=== PATIENT | male | born 1975 | race African-American/Black ===

== ENCOUNTER 2016-10-20 17:53 | Emergency (ER) | payer MEDICAID, OTHER ==
[2016-10-20] MEDS ORDERED: LIDOCAINE 1% INJ-PF (10 MG/ML) 30 ML SDV INJ ONE (19:04)
[2016-10-20] MEDS ORDERED: DIPH/PERTUSS(ACELL)/TETANUS VAC/PF 0.5 ML SYR (>=10YO) IM ONE (19:04)
[2016-10-20] MEDS ORDERED: CEPHALEXIN 500 MG CAPSULE PO ONE (19:05)
--- NOTE | 2016-10-20 19:05 | ER Document Report ---
ED Hand/Wrist Injury - General Chief Complaint: Laceration Stated Complaint: LEFT HAND INJURY Time Seen by Provider: 10/20/16 18:44 Mode of Arrival: Ambulatory Information source: Patient Notes: 41-year-old male presents to ED for laceration to the back of the left hand/ wrist this afternoon just prior to arrival. 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 He states his tetanus was at least 10 years ago. TRAVEL OUTSIDE OF THE [place] IN LAST 30 DAYS: No - HPI Injury to: Hand Onset: Just prior to arrival Where: Outdoors, Public place Timing: Still present Quality of pain: Sharp Severity: Moderate Pain Level: 2 Context: Laceration - Related Data Allergies/Adverse Reactions: No Known Allergies Allergy (Verified 10/20/16 18:30) Past Medical History - General Information source: Patient - Social History Smoking Status: Current Every Day Smoker Cigarette use (# per day): Yes - 1/2 ppd Chew tobacco use (# tins/day): No Smoking Education Provided: Yes - less than 2 min Frequency of alcohol use: Heavy - daily Drug Abuse: None Occupation: auto salvage Lives with: Family - cousin Family History: Arthritis, CVA, DM, Hyperlipidemia, Hypertension, Malignancy, Thyroid Disfunction. denies: CAD, COPD Patient has suicidal ideation: No Patient has homicidal ideation: No - Past Medical History Cardiac Medical History: Reports: Hx Hypercholesterolemia, Hx Hypertension Pulmonary Medical History: Reports: None EENT Medical History: Reports: None Neurological Medical History: Reports: Hx Migraine Endocrine Medical History: Reports: None Renal/ Medical History: Reports: None Malignancy Medical History: Reports None GI Medical History: Reports: None Musculoskeltal Medical History: Reports Hx Arthritis, Reports Hx Musculoskeletal Deformity - chronic back pain and joint pain, Reports Hx Musculoskeletal Trauma Skin Medical History: Reports None Psychiatric Medical History: Reports: Hx Bipolar Disorder, Hx Schizophrenia Traumatic Medical History: Reports: Hx Fractures - left hip, Hx Traumatic Brain Injury Past Surgical History: Reports: Other - Corneal transplant - Immunizations Hx Diphtheria, Pertussis, Tetanus Vaccination: Yes - October 20, 2016 Review of Systems - Review of Systems Constitutional: No symptoms reported EENT: No symptoms reported Cardiovascular: No symptoms reported Respiratory: No symptoms reported Gastrointestinal: No symptoms reported Genitourinary: No symptoms reported Male Genitourinary: No symptoms reported Musculoskeletal: No symptoms reported Skin: Other - Laceration left hand Hematologic/Lymphatic: No symptoms reported Neurological/Psychological: No symptoms reported Physical Exam - Vital signs Vitals: Temp Pulse Resp BP Pulse Ox 98.1 F 70 16 114/80 98 10/20/16 18:30 10/20/16 18:30 10/20/16 18:30 10/20/16 18:30 10/20/16 18:30 Interpretation: Normal - General General appearance: Appears well, Alert - HEENT Head: Normocephalic, Atraumatic Eyes: Normal Pupils: PERRL - Respiratory Respiratory status: No respiratory distress Chest status: Nontender Breath sounds: Normal Chest palpation: Normal - Cardiovascular Rhythm: Regular Heart sounds: Normal auscultation Murmur: No - Abdominal Inspection: Normal Distension: No distension Bowel sounds: Normal Tenderness: Nontender Organomegaly: No organomegaly - Back Back: Normal, Nontender - Extremities General upper extremity: Normal color, Normal ROM, Normal temperature General lower extremity: Normal inspection, Nontender, Normal color, Normal ROM , Normal temperature, Normal weight bearing. No: Wander's sign Hand: Tender, Laceration - Posterior hand/wrist, No evidence of human bite, No evidence of FB. No: Swelling, Tendon deficit - Neurological Neuro grossly intact: Yes Cognition: Normal Orientation: AAOx4 Shelley Coma Scale Eye Opening: Spontaneous Shelley Coma Scale Verbal: Oriented Herscher Coma Scale Motor: Obeys Commands Shelley Coma Scale Total: 15 Speech: Normal Motor strength normal: LUE, RUE, LLE, RLE Sensory: Normal - Psychological Associated symptoms: Normal affect, Normal mood - Skin Skin Temperature: Warm Skin Moisture: Dry Skin Color: Normal Skin irregularity: Laceration - Posterior hand/wrist Irregularity with: Tenderness Course - Re-evaluation Re-evalutation: 10/20/16 20:24 Patient was treated with Keflex and tetanus shot before sutures were completed. Discharged home with prescription for Keflex instructed to follow-up with his primary doctor in 3 days to reexamine the wound and in 8 days to have the sutures removed. - Vital Signs Vital signs: Temp Pulse Resp BP Pulse Ox 98.1 F 70 16 114/80 98 10/20/16 18:30 10/20/16 18:30 10/20/16 18:30 10/20/16 18:30 10/20/16 18:30 Procedures - Laceration/Wound Repair Left Hand/wrist Time completed: 20:23 Wound length (cm): 1.5 Wound's Depth, Shape: Linear Laceration pre-procedure: Sterile PPE donned, Sterile drapes applied, Other Anesthetic type: 1% Lidocaine Volume Anesthetic (mLs): 6 Wound explored: Clean, No foreign body removed Irrigated w/ Saline (mLs): 500 Wound Repaired With: Sutures Suture Size/Type: 3:0, Ethilon Number of Sutures: 3 Layer Closure?: No Post-procedure wound care: Sterile dressing applied Post-procedure NV exam normal: Yes Complications: Yes Discharge - Discharge Clinical Impression: left posterior wrist laceration Condition: Stable Disposition: HOME, SELF-CARE Additional Instructions: Hand Laceration A laceration on the hand can present special problems. It may be difficult to keep the wound dry. Motion of the fingers can disturb the healing edges. Your work may involve exposure to damaging chemicals or water. Keep the wound clean and dry. If you can't keep the cut dry, undisturbed, and free of chemical exposure, please discuss this with the doctor. If any water or chemical gets onto the dressing, remove it, blot the wound dry, then apply a fresh bandage. Dressings should be changed every day. If you feel the stitches pulling as you move the hand, a splint or other form of protection is needed. If any signs of infection occur (swelling, redness, increasing tenderness, red streaks, tender lumps in the armpit, or fever), see the doctor immediately. LACERATION CARE: Your laceration has been sutured to keep the skin edges aligned during healing. The time of suture removal depends on the nature and location of your cut. Please follow the care instructions the doctor has outlined for you and return for further care, according to the schedule you've been given. Keep the wound and dressing clean. Unless you were told otherwise, you may shower daily, blotting the wound dry with a clean, unused towel. At other times, If the dressing gets wet or blood soaked, remove it and blot the wound dry, then reapply a new dressing. Unless you were instructed otherwise, dressings should be changed at least daily. If any signs of infection occur (swelling, redness, drainage, increasing tenderness, red streaks, tender lumps in the armpit or groin above the laceration, or fever), see the doctor immediately. SOAP CLEANSING: Gently wash the wound daily using a mild soap (like Ivory, Phisoderm, Neutrogena). Use warm water, rubbing gently until all debris, ooze, and crusting have been washed from the wound. Allow to dry briefly (about 10 minutes) after cleaning. Repeat this cleansing at least three times a day for the first two days and then once or twice a day. ANTIBIOTIC OINTMENT PROTECTION: Your wounds are such that dressing them is not practical or optional. After cleansing, you should apply a thin coating of antibiotic ointment ( Bacitracin, not Neosporin) to the wounds at least three times daily. This lessens infection risk, and may decrease the amount of scarring. Use a q-tip or dull butter knife, not your finger, to apply this ointment. Any debris or ooze which builds up in the ointment should be gently rubbed off with a sterile gauze pad. Harder crusting may need to be gently scrubbed off with a clean wash cloth with soap and warm water, perhaps applying a warm, wet wash cloth to the wound for ten minutes first. Development of redness, severe itching, or blistering may mean allergy to the ointment. See the doctor. TETANUS IMMUNIZATION GIVEN: You have been given an immunization against tetanus. Please record this in your records. In general, a booster is needed only once every 10 years. The tetanus shot protects against tetanus or "lockjaw," which is a complication of certain wound infections (the tetanus shot cannot protect against the actual infection). The immunization site may become warm and red due to local reaction. If this occurs, apply warm compresses and take aspirin or ibuprofen to reduce inflammation and discomfort. Return for evaluation if the reaction becomes severe. PROPHYLACTIC ANTIBIOTIC: The antibiotics which have been prescribed are designed to decrease the risk of infection. Only certain types of wounds benefit from this -- the typical cut, scrape, or burn DOES NOT require antibiotics. Of course, infection can still occur despite the use of prophylactic antibiotics. Your wound will heal with less chance of an infectious complication if you take the medication as directed. The most important dose is the FIRST dose, so don't delay filling the prescription! FOLLOW-UP CARE: Please return in __2___ days for an infection check and dressing change. Your sutures should be removed in __8___ days. To facilitate a timely removal of your sutures, you may return to the Emergency Department at [facility]. You do not need to call for an appointment, but the best time to come in for suture removal is early in the morning. If you have been referred to another physician for follow-up care, call that physicians office for an appointment as you were instructed. If you experience a significant change in your laceration, or if you are concerned there may be an infection (swelling, redness, drainage, increasing tenderness, red streaks, tender lumps in the armpit or groin above the laceration, or fever) , return to the Emergency Department immediately re-evaluation. Prescriptions: Cephalexin Monohydrate [Keflex 500 mg Capsule] 500 mg PO QID #20 capsule Forms: Smoking Cessation Education, Return to Work
[2016-10-20 20:33] VITALS: BP 140/97
== END 2016-10-20 20:33 | disposition home or self-care (01) ==
LOC: ER 17:53
PROC: 0HQEXZZ Repair Left Lower Arm Skin, External Approach (ICD-10-PCS; principal; 2016-10-20)
DX: S61.512A Laceration without foreign body of left wrist, initial encounter (principal); W26.9XXA Contact with unspecified sharp object(s), initial encounter; Y92.89 Other specified places as the place of occurrence of the external cause; Y99.0 Civilian activity done for income or pay; F17.210 Nicotine dependence, cigarettes, uncomplicated; E78.00 Pure hypercholesterolemia, unspecified; I10 Essential (primary) hypertension; Z87.820 Personal history of traumatic brain injury; Z23 Encounter for immunization; Z94.7 Corneal transplant status
CPT/HCPCS: 99282; 90471; 90715; 12001; J3490

== ENCOUNTER 2016-11-04 06:31 | Emergency (ER) | payer MEDICAID ==
[2016-11-04 08:08] LABS: ABSOLUTE EOSINOPHILS # (AUTO) 0.1 10^3/uL (0.0-0.6); ABSOLUTE LYMPHOCYTES (AUTO) 1.8 10^3/uL (0.5-4.7); ABSOLUTE MONOCYTES (AUTO) 0.9 10^3/uL (0.1-1.4); ABSOLUTE NEUT (AUTO) 4.1 10^3/uL (1.7-8.2); BASOPHILS % (AUTO) 0.5 % (0-2); EOSINOPHILS % (AUTO) 1.4 % (0-6); HEMATOCRIT 44.2 % (37.9-51.0); HEMOGLOBIN 14.7 g/dL (13.5-17.0); HGB HCT DIFFERENCE -0.1; LYMPHOCYTES % (AUTO) 25.4 % (13-45); MEAN CORPUSCULAR HEMOGLOBIN 30.5 pg (27.0-33.4); MEAN CORPUSCULAR HGB CONC 33.4 g/dL (32.0-36.0); MEAN CORPUSCULAR VOLUME 92 fl (80-97); MONOCYTES % (AUTO) 12.6 % (3-13); RED BLOOD COUNT 4.83 10^6/uL (4.35-5.55); RED CELL DISTRIBUTION WIDTH 14.2 % (11.5-14.0); SEGMENTED NEUTROPHILS % (AUTO) 60.1 % (42-78); WHITE BLOOD COUNT 6.9 10^3/uL (4.0-10.5)
--- NOTE | 2016-11-04 08:11 | EKG REPORT ---
SEVERITY:- NORMAL ECG - SINUS RHYTHM : Confirmed by: Chaka Scott MD 04-Nov-2016 08:11:12
--- NOTE | 2016-11-04 08:14 | RADIOLOGY REPORT (SQ) ---
EXAM DESCRIPTION: CHEST SINGLE VIEW COMPLETED DATE/TIME: 11/04/2016 7:59 am REASON FOR STUDY: chest pain COMPARISON: None EXAM PARAMETERS: NUMBER OF VIEWS: One view. TECHNIQUE: Single frontal radiographic view of the chest acquired. RADIATION DOSE: NA LIMITATIONS: None. FINDINGS: LUNGS AND PLEURA: No opacities, masses or pneumothorax. No pleural effusion. MEDIASTINUM AND HILAR STRUCTURES: No masses. Contour normal. HEART AND VASCULAR STRUCTURES: Heart normal in size. Normal vasculature. BONES: No acute findings. HARDWARE: None in the chest. OTHER: No other significant finding. IMPRESSION: NO ACUTE RADIOGRAPHIC FINDING IN THE CHEST. TECHNICAL DOCUMENTATION: JOB ID: [id number]
[2016-11-04 08:20] LABS: ALANINE AMINOTRANSFERASE 43 U/L (21-72); ALBUMIN 4.7 g/dL (3.5-5.0); ALKALINE PHOSPHATASE 89 U/L (38-126); ANION GAP 13 (5-19); ASPARTATE AMINO TRANSFERASE 32 U/L (17-59); BILIRUBIN,DIRECT 0.2 mg/dL (0.0-0.4); BILIRUBIN,TOTAL 0.9 mg/dL (0.2-1.3); BLOOD UREA NITROGEN 15 mg/dL (7-20); CALCIUM 9.9 mg/dL (8.4-10.2); CARBON DIOXIDE 25 mmol/L (22-30); CHLORIDE 103 mmol/L (98-107); CREATINE KINASE 386 U/L (55-170); CREATININE RESULT 0.98 mg/dL (0.52-1.25); GLUCOSE 107 mg/dL (75-110); POTASSIUM 4.7 mmol/L (3.6-5.0); SODIUM 140.5 mmol/L (137-145); TOTAL PROTEIN 8.1 g/dL (6.3-8.2)
[2016-11-04 08:31] LABS: CREATINE KINASE MB 0.96 ng/mL (<4.55)
[2016-11-04 08:33] LABS: TROPONIN I < 0.012 ng/mL
--- NOTE | 2016-11-04 10:01 | ER Document Report ---
ED General - General Chief Complaint: Chest Pain Stated Complaint: CHEST PAIN Time Seen by Provider: 11/04/16 07:36 TRAVEL OUTSIDE OF THE [place] IN LAST 30 DAYS: No - HPI Patient complains to provider of: Chest wall pain Notes: Patient coming in for evaluation of chest wall pain states mostly on the right side sometimes goes down to the left bottom of the chest. Patient states ongoing for greater than 1 month worse over the last 24 hours. Patient does admit to smoking and drinking alcohol states he does not drink to excess or to drunkenness. Patient denies any trauma denies fevers chills nausea vomiting. Patient denies any past medical history denies any family history denies taking any medications at this time. - Related Data Allergies/Adverse Reactions: No Known Allergies Allergy (Verified 11/04/16 06:49) Past Medical History - Social History Smoking Status: Former Smoker Chew tobacco use (# tins/day): No Frequency of alcohol use: Occasional Drug Abuse: None Family History: Arthritis, CVA, DM, Hyperlipidemia, Hypertension, Malignancy, Thyroid Disfunction. denies: CAD, COPD - Past Medical History Cardiac Medical History: Reports: Hx Hypercholesterolemia, Hx Hypertension Neurological Medical History: Reports: Hx Migraine Renal/ Medical History: Denies: Hx Peritoneal Dialysis Musculoskeltal Medical History: Reports Hx Arthritis, Reports Hx Musculoskeletal Deformity - chronic back pain and joint pain, Reports Hx Musculoskeletal Trauma Psychiatric Medical History: Reports: Hx Bipolar Disorder, Hx Schizophrenia Traumatic Medical History: Reports: Hx Fractures - left hip, Hx Traumatic Brain Injury Surgical Hx: Negative Past Surgical History: Reports: Other - Corneal transplant - Immunizations Hx Diphtheria, Pertussis, Tetanus Vaccination: Yes - October 20, 2016 Review of Systems - Review of Systems Constitutional: No symptoms reported EENT: No symptoms reported Cardiovascular: Chest pain Respiratory: No symptoms reported Gastrointestinal: No symptoms reported Genitourinary: No symptoms reported Male Genitourinary: No symptoms reported Musculoskeletal: No symptoms reported Skin: No symptoms reported Hematologic/Lymphatic: No symptoms reported Neurological/Psychological: No symptoms reported -: Yes All other systems reviewed and negative Physical Exam - Vital signs Vitals: Temp Pulse Resp BP Pulse Ox 98.2 F 71 18 131/83 H 97 11/04/16 06:51 11/04/16 06:51 11/04/16 06:51 11/04/16 06:51 11/04/16 06:51 Interpretation: Normal - General General appearance: Appears well, Alert - HEENT Head: Normocephalic, Atraumatic Eyes: Normal Pupils: PERRL - Respiratory Respiratory status: No respiratory distress Chest status: Tender Breath sounds: Normal Chest palpation: Normal - Cardiovascular Rhythm: Regular Heart sounds: Normal auscultation Murmur: No - Abdominal Inspection: Normal Distension: No distension Bowel sounds: Normal Tenderness: Nontender Organomegaly: No organomegaly - Back Back: Normal, Nontender - Extremities General upper extremity: Normal inspection, Nontender, Normal color, Normal ROM , Normal temperature General lower extremity: Normal inspection, Nontender, Normal color, Normal ROM , Normal temperature, Normal weight bearing. No: Wander's sign - Neurological Neuro grossly intact: Yes Cognition: Normal Orientation: AAOx4 Shelley Coma Scale Eye Opening: Spontaneous Shelley Coma Scale Verbal: Oriented Shelley Coma Scale Motor: Obeys Commands Shelley Coma Scale Total: 15 Speech: Normal Motor strength normal: LUE, RUE, LLE, RLE Sensory: Normal - Psychological Associated symptoms: Normal affect, Normal mood - Skin Skin Temperature: Warm Skin Moisture: Dry Skin Color: Normal Course - Re-evaluation Re-evalutation: 11/04/16 13:43 The patient has atypical chest pain as the patient's chest pain is not suggestive of pulmonary embolus, cardiac ischemia, aortic dissection, or other serious etiology. Given the extremely low risk of these diagnoses further testing and evaluation for these possibilities does not appear to be indicated at this time. The patient has been instructed to return if the symptoms worsen or change in any way. Troponin and d-dimer EKG negative more likely chest wall pain. Patient was given anti-inflammatories and patient is to be discharged home. - Vital Signs Vital signs: Temp Pulse Resp BP Pulse Ox 98.2 F 71 12 141/87 H 99 11/04/16 06:51 11/04/16 06:51 11/04/16 10:00 11/04/16 10:02 11/04/16 10:00 - Laboratory Result Diagrams: 11/04/16 07:57 11/04/16 07:57 Laboratory results interpreted by me: 11/04/16 11/04/16 07:57 07:57 RDW 14.2 H Creatine Kinase 386 H Discharge - Discharge Clinical Impression: Right-sided chest wall pain Condition: Good Disposition: HOME, SELF-CARE Instructions: Chest Wall Pain ([facility]), Chest Pain of Unclear Cause ([facility]), Anti- Inflammatory Medication ([facility]), Oral Narcotic Medication ([facility]) Additional Instructions: Please follow-up with your physician. Your laboratory studies do not show any signs of significant pathology. More likely you are experiencing chest wall pain could be due to a muscle spasm or muscle inflammation. Recommend taking Tylenol Motrin for pain control prescribed medication for severe pain. Prescriptions: Tramadol HCl [Ultram 50 mg Tablet] 50 mg PO ASDIR PRN #20 tablet PRN Reason: Forms: Return to Work Referrals: AUDI PAT MD [Primary Care Provider] - Follow up as needed
[2016-11-04 10:03] VITALS: BP 141/87
== END 2016-11-04 10:05 | disposition home or self-care (01) ==
LOC: ER 06:31
DX: R07.89 Other chest pain (principal); I10 Essential (primary) hypertension; Z87.891 Personal history of nicotine dependence
CPT/HCPCS: 36415; 71010; 80053; 82550; 82553; 83690; 84484; 85025; 85379; 93005; 93010; 99285

== ENCOUNTER 2017-07-16 17:30 | Emergency (ER) | payer OTHER, MEDICAID ==
[2017-07-16 17:43] VITALS: BP 143/82
== END 2017-07-16 18:36 | disposition left against medical advice (07) ==
LOC: ER 17:30
DX: Z53.21 Procedure and treatment not carried out due to patient leaving prior to being seen by health care provider (principal)

== ENCOUNTER 2017-07-17 13:16 | Emergency (ER) | payer MEDICAID, OTHER ==
[2017-07-17] MEDS ORDERED: DIPH/PERTUSS(ACELL)/TETANUS VAC/PF 0.5 ML SYR (>=10YO) IM ONE (13:45)
--- NOTE | 2017-07-17 13:46 | ER Document Report ---
ED Burn/Smoke/Toxic Fumes - General Mode of Arrival: Ambulatory Information source: Patient TRAVEL OUTSIDE OF THE [place] IN LAST 30 DAYS: No - HPI Patient complains to provider of: Burn Onset: Other - 2 days ago Associated Symptoms: Other - see notes above - General Chief Complaint: Chemical Burn Stated Complaint: RIGHT MIDDLE FINGER PAIN Time Seen by Provider: 07/17/17 13:39 Notes: 42-year-old patient presents to the ED complaining of a burn to his right third digit that occurred 2 days ago while working on his car. Patient reports that his finger was exposed to hot radiator fluid. Patient explains that the pain is worsening. Patient denies any fever. Patient's last tetanus shot was 10 years ago. (CHAIM MEZA) - Related Data Allergies/Adverse Reactions: No Known Allergies Allergy (Verified 07/17/17 13:46) Past Medical History - General Information source: Patient - Social History Smoking Status: Current Every Day Smoker Chew tobacco use (# tins/day): Yes - daily Frequency of alcohol use: daily Drug Abuse: None Family History: Arthritis, CVA, DM, Hyperlipidemia, Hypertension, Malignancy, Thyroid Disfunction. denies: CAD, COPD Patient has suicidal ideation: No Patient has homicidal ideation: No - Past Medical History Cardiac Medical History: Reports: Hx Hypercholesterolemia, Hx Hypertension Neurological Medical History: Reports: Hx Migraine Renal/ Medical History: Denies: Hx Peritoneal Dialysis Musculoskeltal Medical History: Reports Hx Arthritis, Reports Hx Musculoskeletal Deformity - chronic back pain and joint pain, Reports Hx Musculoskeletal Trauma Psychiatric Medical History: Reports: Hx Bipolar Disorder, Hx Schizophrenia Traumatic Medical History: Reports: Hx Fractures - left hip, Hx Traumatic Brain Injury Past Surgical History: Reports: Other - Corneal transplant - Immunizations Hx Diphtheria, Pertussis, Tetanus Vaccination: Yes - October 20, 2016 Review of Systems - Review of Systems Constitutional: No symptoms reported. denies: Fever EENT: No symptoms reported Cardiovascular: No symptoms reported Respiratory: No symptoms reported Gastrointestinal: No symptoms reported Genitourinary: No symptoms reported Male Genitourinary: No symptoms reported Musculoskeletal: See HPI, Other - burn to the right 3rd digit Skin: No symptoms reported Hematologic/Lymphatic: No symptoms reported Neurological/Psychological: No symptoms reported -: Yes All other systems reviewed and negative Physical Exam - Vital signs Vitals: Temp Pulse Resp BP Pulse Ox 98.4 F 73 17 147/79 H 97 03/24/18 13:40 07/17/17 13:40 07/17/17 13:40 07/17/17 13:40 07/17/17 13:40 - Notes Notes: GENERAL: Alert, interacts well. No acute distress. HEAD: Normocephalic, atraumatic. EYES: Pupils equal, round, and reactive to light. Extraocular movements intact. ENT: Oral mucosa moist, tongue midline. NECK: Full range of motion. Supple. Trachea midline. LUNGS: No respiratory distress. EXTREMITIES: Moves all 4 extremities spontaneously. No edema. No cyanosis. 14 mm x 20 mm open blister over the dorsal aspect of the middle phalanx of the 3rd right digit. Superficial soto to the dorsal aspect of the 3rd right digit. Burn does not extend to the hand. Good capillary refill. NEUROLOGICAL: Alert and oriented x3. Normal speech. PSYCH: Normal affect, normal mood. SKIN: Warm, dry, normal turgor. (CHAIM MEZA) Full range of motion of right hand able to fully flex and extend the right third digit where the burn is. No evidence of tendinous involvement. (HANNAH KAYE) Course - Re-evaluation Re-evalutation: 07/17/17 13:53 No evidence of bacterial infection, no evidence of tendon damage. Discussed case with Dr. Cifuentes the burn attending at [facility], agrees with follow- up in clinic on Wednesday. Agrees with updating tetanus shot and washing with soap and water twice a day and applying Bactroban ointment. Patient's tetanus shot is updated and he is discharged to home (HANNAH KAYE) - Vital Signs Vital signs: Temp Pulse Resp BP Pulse Ox 97.8 F 68 16 134/84 H 100 07/17/17 14:20 07/17/17 14:20 07/17/17 14:20 07/17/17 14:20 07/17/17 14:20 Discharge - Discharge Clinical Impression: Burn of single finger of right hand, not thumb Qualifiers: Encounter type: initial encounter Burn degree: partial thickness (2nd degree) Qualified Code(s): T23.221A - Burn of second degree of single right finger (nail ) except thumb, initial encounter Condition: Stable Disposition: HOME, SELF-CARE Additional Instructions: Please wash your hand with soap and water twice a day, pat it dry and then apply the Bactroban (mupirocin) ointment. Please call the [facility] burn clinic at [phone] to arrange a follow- up appointment in the clinic hopefully for Wednesday. Should you have increasing swelling in your finger, difficulty bending it, redness or streaking away from your finger or any new or concerning symptoms please return to the emergency department immediately. I have prescribed you a limited number of hydrocodone (also noticed Vicodin). These are to be taken for pain that is not controlled by Advil or Tylenol. Do not mix narcotic pain medication such as hydrocodone with alcohol. Prescriptions: Hydrocodone/Acetaminophen [Hydrocodon-Acetaminophen 5-325] 1 each PO Q6HP PRN # 14 tablet PRN Reason: Mupirocin [Bactroban 2% Ointment 22 gm] 1 applic TP BID #1 tube Referrals: AUDI PAT MD [Primary Care Provider] - Follow up as needed Scribe Attestation: 07/17/17 18:16 I personally performed the services described in the documentation, reviewed and edited the documentation which was dictated to the scribe in my presence, and it accurately records my words and actions. (HANNAH KAYE) Scribe Documentation - Scribe Written by Benny:: Benny Hart, 07/17/2017 1426 acting as scribe for :: Kellee
[2017-07-17 14:24] VITALS: BP 134/84
== END 2017-07-17 14:20 | disposition home or self-care (01) ==
LOC: ER 13:16
DX: T23.221A Burn of second degree of single right finger (nail) except thumb, initial encounter (principal); X12.XXXA Contact with other hot fluids, initial encounter; Y93.89 Activity, other specified; F17.200 Nicotine dependence, unspecified, uncomplicated; I10 Essential (primary) hypertension
CPT/HCPCS: 90471; 90715; 99283

== ENCOUNTER 2017-08-05 07:58 | Emergency (ER) | payer MEDICAID ==
--- NOTE | 2017-08-05 09:44 | ER Document Report ---
ED General - General Chief Complaint: Headache Stated Complaint: HEADACHE, EARACHE, EYE/JOINT PAIN Time Seen by Provider: 08/05/17 08:12 Mode of Arrival: Ambulatory Information source: Patient Notes: Patient is a 42 year old aam who presents to the ER with complaints of headache , left ear ache, left sided neck and chest pain, and pain in to the arms and legs. Patient advised that the headache started when he was 7 years old after a traumatic injury and the other pain started approximately 8-10 years ago. He stated that the pain got worse this morning on the way to work and decided that he needed to get it check out. The pain is described as a sharp and continuous ache. He has taken several over the counter pain relievers with no effect. He stated that he has tried a percocet in the past and found some relief. Patient admitted to occasional shortness of breath assoiciated with the pain and dizziness. He denied nausea, vomiting, or diarrhea, abdominal pain, vision changes, or numbness/tingling in the extremities. ROS: General: Denies weakness, weight loss, HEENT: Denies Pulm: Denies wheezing, Cardio: Denies GI/: Denies bowel or bladder changes MSK: Denies decrease in strength, Neuro: Psych: Vital Signs: Physical Exam: General: Patient is a well-appearing 42 year old male who is in no apparent distress. He appears without agitation. HEENT: Tympanic membrane is transluscent and without signs of infection; ear canal is clear of foreign bodies, erythema, or swelling; no signs of infection or inflammation; PERRL; EOM intact; no nasal discharge Pulm: LCTAB; patient does not appear in respiratory distress Cardio: S1/S2 heard, no murmurs/rubs/gallops GI/: non-tender to palpation, non-distended MSK: good strength in all extremities Neuro:CN II-XII intact without any gross abnormalities Assessment/Plan: TRAVEL OUTSIDE OF THE [place] IN LAST 30 DAYS: No - HPI Onset: Other - 35 years Onset/Duration: Persistent Quality of pain: Sharp Severity: Mild Pain Level: 1 Associated symptoms: Other Exacerbated by: Denies Relieved by: Denies Similar symptoms previously: Yes Recently seen / treated by doctor: Yes - Related Data Allergies/Adverse Reactions: No Known Allergies Allergy (Verified 07/17/17 13:46) Past Medical History - Social History Smoking Status: Never Smoker Cigarette use (# per day): No Chew tobacco use (# tins/day): No Smoking Education Provided: No Family History: Arthritis, CVA, DM, Hyperlipidemia, Hypertension, Malignancy, Thyroid Disfunction. denies: CAD, COPD - Past Medical History Cardiac Medical History: Reports: Hx Hypercholesterolemia, Hx Hypertension Neurological Medical History: Reports: Hx Migraine Renal/ Medical History: Denies: Hx Peritoneal Dialysis Musculoskeltal Medical History: Reports Hx Arthritis, Reports Hx Musculoskeletal Deformity - chronic back pain and joint pain, Reports Hx Musculoskeletal Trauma Psychiatric Medical History: Reports: Hx Bipolar Disorder, Hx Schizophrenia Traumatic Medical History: Reports: Hx Fractures - left hip, Hx Traumatic Brain Injury Past Surgical History: Reports: Other - Corneal transplant - Immunizations Hx Diphtheria, Pertussis, Tetanus Vaccination: Yes - October 20, 2016 Review of Systems - Review of Systems Notes: REVIEW OF SYSTEMS: CONSTITUTIONAL : Denies fever, chills, or sweats. Denies recent illness. EENT: Denies eye, ear, throat, or mouth pain or symptoms. Denies nasal or sinus congestion or discharge. Denies throat, tongue, or mouth swelling or difficulty swallowing. CARDIOVASCULAR: Denies chest pain. Denies palpitations or racing or irregular heart beat. Denies ankle edema. RESPIRATORY: Denies cough, cold, or chest congestion. Denies shortness of breath, difficulty breathing, or wheezing. GASTROINTESTINAL: Denies abdominal pain or distention. Denies nausea, vomiting , or diarrhea. Denies blood in vomitus, stools, or per rectum. Denies black, tarry stools. Denies constipation. GENITOURINARY: Denies difficulty urinating, painful urination, burning, frequency, blood in urine, or discharge. MUSCULOSKELETAL: Denies back or neck pain or stiffness. Denies joint pain or swelling. SKIN: Denies rash, lesions or sores. HEMATOLOGIC : Denies easy bruising or bleeding. LYMPHATIC: Denies swollen, enlarged glands. NEUROLOGICAL: admits to facial pain PSYCHIATRIC: hx of depression, ALL OTHER SYSTEMS REVIEWED AND NEGATIVE. Dictation was performed using [email or web address] voice recognition software PHYSICAL EXAMINATION: GENERAL: Well-appearing, well-nourished and in no acute distress. HEAD: Atraumatic, normocephalic. EYES: Pupils equal round and reactive to light, extraocular movements intact, sclera anicteric, conjunctiva are normal. ENT: Nares patent, oropharynx clear without exudates. Moist mucous membranes. NECK: Normal range of motion, supple without lymphadenopathy LUNGS: Breath sounds clear to auscultation bilaterally and equal. No wheezes rales or rhonchi. HEART: Regular rate and rhythm without murmurs ABDOMEN: Soft, nontender, nondistended abdomen. No guarding, no rebound. No masses appreciated. Musculoskeletal: Normal range of motion, no pitting or edema. No cyanosis. NEUROLOGICAL: Cranial nerves grossly intact. Normal speech, normal gait. Normal sensory, motor exams PSYCH: Normal mood, normal affect. SKIN: Warm, Dry, normal turgor, no rashes or lesions noted. Physical Exam - Vital signs Vitals: Temp Pulse Resp BP Pulse Ox 98.0 F 95 16 159/90 H 98 08/05/17 08:01 08/05/17 08:08/05/17 08:08/05/17 08:01 08/05/17 08:01 Course - Re-evaluation Re-evalutation: 08/05/17 15:24 Patient's examination is quite benign, this pain appears to be ongoing for 35 years, he has never been tried on gabapentin and given that this is neurological pain I will try to gabapentin on the patient, otherwise he is stable well-appearing no distress After performing a Medical Screening Examination, I estimate there is LOW risk for ACUTE GLAUCOMA, TEMPORAL ARTERITIS, MENINGITIS, INCRANIAL HEMORRHAGE, or ISCHEMIC STROKE thus I consider the discharge disposition reasonable. I have reevaluated this patient multiple times and no significant life threatening changes are noted. The patient and I have discussed the diagnosis and risks, and we agree with discharging home with close follow-up with the understanding that symptoms and presentations can change. We also discussed returning to the Emergency Department immediately if new or worsening symptoms occur. We have discussed the symptoms which are most concerning (e.g., changing or worsening symptoms, new numbness or weakness, vomiting, fever) that necessitate immediate return. - Vital Signs Vital signs: Temp Pulse Resp BP Pulse Ox 98.2 F 92 17 160/90 H 98 08/05/17 10:08/05/17 10:08/05/17 10:08/05/17 10:08/05/17 10:01 Discharge - Discharge Clinical Impression: Facial pain Chronic pain Qualifiers: Chronic pain type: chronic pain syndrome Qualified Code(s): G89.4 - Chronic pain syndrome Condition: Stable Disposition: HOME, SELF-CARE Instructions: Neuralgia ([facility]) Prescriptions: Gabapentin 300 mg PO Q6 #120 capsule Forms: Return to Work Referrals: AUDI PAT MD [Primary Care Provider] - Follow up tomorrow
[2017-08-05 10:01] VITALS: BP 160/90
== END 2017-08-05 10:05 | disposition home or self-care (01) ==
LOC: ER 07:58
DX: R51 Headache (principal); G89.4 Chronic pain syndrome; H92.02 Otalgia, left ear; M54.2 Cervicalgia; R07.9 Chest pain, unspecified; M79.604 Pain in right leg; M79.605 Pain in left leg; M79.601 Pain in right arm; M79.602 Pain in left arm; Z87.828 Personal history of other (healed) physical injury and trauma; R06.02 Shortness of breath; R42 Dizziness and giddiness; I10 Essential (primary) hypertension
CPT/HCPCS: 99283

== ENCOUNTER 2017-08-08 09:38 | Emergency (ER) | payer MEDICAID ==
[2017-08-08] MEDS ORDERED: LIDOCAINE 1% INJ-PF (10 MG/ML) 30 ML SDV INJ ONE (10:02)
--- NOTE | 2017-08-08 10:08 | ER Document Report ---
HPI - HPI Pain Level: 5 Notes: Patient is a 42-year-old male with no significant past medical history presents to the ED complaining of pain, swelling, and discharge from his left medial toenail. Patient believes that he has an ingrown toenail that has become infected. He tried to trim it himself, but was unsuccessful. He has not been taking any medicines for symptoms. The pain does not radiate. No other drug allergies. Patient does admit to smoking but denies IV drug use. No other concerns or complaints at this time. Denies any headache, fever, URI, sore throat, chest pain, palpitations, syncope, cough, shortness of breath, wheeze, dyspnea, abdominal pain, nausea/vomiting/diarrhea, urinary retention, dysuria, hematuria, or rash. - ROS Systems Reviewed and Negative: Yes All other systems reviewed and negative Past Medical History - Social History Smoking Status: Current Every Day Smoker Family History: Arthritis, CVA, DM, Hyperlipidemia, Hypertension, Malignancy, Thyroid Disfunction. denies: CAD, COPD - Past Medical History Cardiac Medical History: Reports: Hx Hypercholesterolemia, Hx Hypertension Neurological Medical History: Reports: Hx Migraine Renal/ Medical History: Denies: Hx Peritoneal Dialysis Musculoskeltal Medical History: Reports Hx Arthritis, Reports Hx Musculoskeletal Deformity - chronic back pain and joint pain, Reports Hx Musculoskeletal Trauma Psychiatric Medical History: Reports: Hx Bipolar Disorder, Hx Schizophrenia Traumatic Medical History: Reports: Hx Fractures - left hip, Hx Traumatic Brain Injury Past Surgical History: Reports: Other - Corneal transplant - Immunizations Hx Diphtheria, Pertussis, Tetanus Vaccination: Yes - October 20, 2016 Vertical Provider Document - CONSTITUTIONAL Agree With Documented VS: Yes Notes: PHYSICAL EXAMINATION: GENERAL: Well-appearing, well-nourished and in no acute distress. LUNGS: Breath sounds clear to auscultation bilaterally and equal. No wheezes rales or rhonchi. HEART: Regular rate and rhythm without murmurs, rubs, gallops. Musculoskeletal: FROM to passive/active. Strength 5+/5. Extremities: No cyanosis, clubbing, or edema b/l. Peripheral pulses 2+. Capillary refill less than 3 seconds. NEUROLOGICAL: Normal speech, normal gait. Normal sensory, motor exams PSYCH: Normal mood, normal affect. SKIN: Left great toenail: + swelling, purulence, and erythema to the medial nail border. Appears to be an ingrown nail with paronychia. - INFECTION CONTROL TRAVEL OUTSIDE OF THE [place] IN LAST 30 DAYS: No Course - Re-evaluation Re-evalutation: 08/08/17 10:45 Patient is an afebrile, well-hydrated, 42-year-old male who presents to the ED with an ingrown toenail and infection to his left medial toe/toenail. Vitals are acceptable. PE is otherwise unremarkable for any neurovascular compromise, obvious tendon/ligament rupture, obvious fracture/dislocation. Patient expressed desire to have his nail partially removed. Ingrown toenail was successfully removed without any complications. I will place him on Keflex and Bactrim to take as directed. No other labs or imaging warranted at this time based on H&P. Recheck with your PCM in 2-3 days. Consider consult with a circuit walker. Return to the ED with any worsening/concerning symptoms otherwise as reviewed discharge. Patient is in agreement. - Vital Signs Vital signs: Temp Pulse Resp BP Pulse Ox 97.9 F 85 16 146/90 H 97 08/08/17 09:42 08/08/17 09:42 08/08/17 09:42 08/08/17 09:42 08/08/17 09:42 Procedures - Nail Trephanation/Removal Left Great toe Time completed: 10:40 - pt tolerated proc well, no complications Nail Trepanation/Removal Location: Left medial 1/4-1/3 nail removed Betadine prep applied: No - chlorhexadine/saline Method of Drainage: Other - partial nail excision Sterile Dressing Applied: Yes Discharge - Discharge Clinical Impression: Ingrown left big toenail, Paronychia Condition: Stable Disposition: HOME, SELF-CARE Instructions: Ingrown Nail ([facility]) Additional Instructions: Keep the skin clean Wash with soap and water Tylenol/ibuprofen if needed Triple antibiotic ointment daily Epsom salt soaks Take medication as directed Monitor for any worsening symptoms Recheck with your PCM in 2-3 days Consider consult with Podiatry for ongoing/worsening symptoms Return to the ED with any worsening symptoms and/or development of fever, headache, chest pain, palpitations, syncope, shortness of breath, trouble breathing, abdominal pain, n/v/d, abscess, purulent discharge, red streaks, worsening swelling, or other worsening symptoms that are concerning to you. Prescriptions: Cephalexin Monohydrate [Keflex 500 mg Capsule] 500 mg PO BID #20 capsule Sulfamethoxazole/Trimethoprim [Bactrim Ds Tablet] 1 each PO BID #20 tablet Forms: Elevated Blood Pressure, Smoking Cessation Education Referrals: POORNIMA IRBY DPM [ACTIVE STAFF] - Follow up as needed
[2017-08-08 11:13] VITALS: BP 143/94
== END 2017-08-08 11:05 | disposition home or self-care (01) ==
LOC: ER 09:38
PROC: 0HBRXZZ Excision of Toe Nail, External Approach (ICD-10-PCS; principal; 2017-08-08)
DX: L60.0 Ingrowing nail (principal); L03.032 Cellulitis of left toe; M79.675 Pain in left toe(s); M79.89 Other specified soft tissue disorders; F17.200 Nicotine dependence, unspecified, uncomplicated; I10 Essential (primary) hypertension
CPT/HCPCS: 99283

== ENCOUNTER 2017-08-28 06:15 | Emergency (ER) | payer MEDICAID ==
[2017-08-28 06:21] VITALS: BP 140/84
== END 2017-08-28 07:15 | disposition left against medical advice (07) ==
LOC: ER 06:15
DX: Z53.21 Procedure and treatment not carried out due to patient leaving prior to being seen by health care provider (principal); H92.02 Otalgia, left ear

== ENCOUNTER 2018-01-01 21:47 | Emergency (ER) | payer MEDICAID ==
[2018-01-01] MEDS ORDERED: ASPIRIN 81 MG TABLET, CHEWABLE PO ONE (22:52)
[2018-01-01 23:04] LABS: ABSOLUTE EOSINOPHILS # (AUTO) 0.1 10^3/uL (0.0-0.6); ABSOLUTE MONOCYTES (AUTO) 0.8 10^3/uL (0.1-1.4); ABSOLUTE NEUT (AUTO) 5.1 10^3/uL (1.7-8.2); BASOPHILS % (AUTO) 0.5 % (0-2); EOSINOPHILS % (AUTO) 0.9 % (0-6); HEMATOCRIT 43.8 % (37.9-51.0); MEAN CORPUSCULAR HEMOGLOBIN 30.5 pg (27.0-33.4); MEAN CORPUSCULAR HGB CONC 34.3 g/dL (32.0-36.0); MEAN CORPUSCULAR VOLUME 89 fl (80-97); MONOCYTES % (AUTO) 9.9 % (3-13); PLATELET COUNT 349 10^3/uL (150-450); RED BLOOD COUNT 4.92 10^6/uL (4.35-5.55); RED CELL DISTRIBUTION WIDTH 13.7 % (11.5-14.0); SEGMENTED NEUTROPHILS % (AUTO) 63.7 % (42-78); TOTAL CELLS COUNTED % (AUTO) 100 %
[2018-01-01 23:18] LABS: ALANINE AMINOTRANSFERASE 39 U/L (21-72); ALBUMIN 4.9 g/dL (3.5-5.0); ALKALINE PHOSPHATASE 90 U/L (38-126); ANION GAP 14 (5-19); ASPARTATE AMINO TRANSFERASE 50 U/L (17-59); BILIRUBIN,DIRECT 0.3 mg/dL (0.0-0.4); BILIRUBIN,TOTAL 0.8 mg/dL (0.2-1.3); BLOOD UREA NITROGEN 20 mg/dL (7-20); CALCIUM 10.4 mg/dL (8.4-10.2); CARBON DIOXIDE 21 mmol/L (22-30); CHLORIDE 104 mmol/L (98-107); CREATINE KINASE 877 U/L (55-170); GLUCOSE 90 mg/dL (75-110); POTASSIUM 4.8 mmol/L (3.6-5.0); SODIUM 139.1 mmol/L (137-145); TOTAL PROTEIN 8.5 g/dL (6.3-8.2)
--- NOTE | 2018-01-01 23:23 | RADIOLOGY REPORT (SQ) ---
EXAM DESCRIPTION: XR CHEST 1 VIEW COMPLETED DATE/TME: 01/01/2018 22:52 CLINICAL HISTORY: 42 years Male, chest pain COMPARISON: 7.12.17 NUMBER OF VIEWS/TECHNIQUE: 1/AP FINDINGS: Adequate lung volume, clear parenchyma, normal cardiac silhouette, and intact bony thorax. IMPRESSION: No acute cardiopulmonary findings.
[2018-01-01 23:36] LABS: CREATINE KINASE MB 1.33 ng/mL (<4.55)
[2018-01-01 23:37] LABS: TROPONIN I < 0.012 ng/mL
--- NOTE | 2018-01-01 23:37 | ER Document Report ---
ED General - General Mode of Arrival: Ambulatory Information source: Patient TRAVEL OUTSIDE OF THE [place] IN LAST 30 DAYS: No <TERRENCE VIVAR - Last Filed: 01/01/18 23:38> <HEBER SYKES - Last Filed: 01/02/18 02:39> - General Chief Complaint: Chest Pain Stated Complaint: CHEST PAIN Time Seen by Provider: 01/01/18 23:20 Notes: 42-year-old male who presents to the emergency department today with multiple generalized complaints including a headache, chest pain, right shoulder and elbow pain, and neck pain. Patient states all of the above mentioned symptoms have been going on for "years". Patient states the reason for him coming in tonight was because the "chest pain was frightening, it was squeezing". Patient goes on to state that he has very bad GERD. Patient mentions that he took a "toke" of marijuana prior to arrival tonight thinking that it might help his symptoms. PCP: Audi Pat (TERRENCE VIVAR) - Related Data Allergies/Adverse Reactions: No Known Allergies Allergy (Verified 08/08/17 09:38) Past Medical History - General Information source: Patient - Social History Smoking Status: Current Every Day Smoker Cigarette use (# per day): Yes Chew tobacco use (# tins/day): No Frequency of alcohol use: Heavy - daily Drug Abuse: Marijuana Lives with: Family Family History: Arthritis, CVA, DM, Hyperlipidemia, Hypertension, Malignancy, Thyroid Disfunction Patient has suicidal ideation: No Patient has homicidal ideation: No - Past Medical History Cardiac Medical History: Reports: Hx Hypercholesterolemia - not medicated, Hx Hypertension - not medicated Neurological Medical History: Reports: Hx Migraine Musculoskeletal Medical History: Reports Hx Arthritis, Reports Hx Musculoskeletal Deformity - chronic back pain and joint pain, Reports Hx Musculoskeletal Trauma - hairline fracture in left hip Psychiatric Medical History: Reports: Hx Bipolar Disorder, Hx Schizophrenia Traumatic Medical History: Reports: Hx Fractures - left hip Past Surgical History: Reports: Other - Corneal transplant - Immunizations Hx Diphtheria, Pertussis, Tetanus Vaccination: Yes - October 20, 2016 <TERRENCE VIVAR - Last Filed: 01/01/18 23:38> Review of Systems - Review of Systems Constitutional: No symptoms reported EENT: No symptoms reported Cardiovascular: See HPI, Chest pain Respiratory: No symptoms reported Gastrointestinal: No symptoms reported Genitourinary: No symptoms reported Male Genitourinary: No symptoms reported Musculoskeletal: See HPI, Joint pain - right shoulder/elbow pain, Neck pain Skin: No symptoms reported Hematologic/Lymphatic: No symptoms reported Neurological/Psychological: See HPI, Headaches -: Yes All other systems reviewed and negative <TERRENCE VIVAR - Last Filed: 01/01/18 23:38> Physical Exam <TERRENCE VIVAR - Last Filed: 01/01/18 23:38> <HEBER SYKES - Last Filed: 01/02/18 02:39> - Vital signs Vitals: Temp Pulse Resp BP Pulse Ox 97.4 F 92 16 133/102 H 97 01/01/18 22:25 01/01/18 22:25 01/01/18 22:25 01/01/18 22:25 01/01/18 22:25 - Notes Notes: Physical Exam: General: Alert, appears well. HEENT: Normocephalic. Atraumatic. PERRL. Extraocular movements intact. Oropharynx clear. Minimal temporal musculature tenderness with palpation. Neck: Supple. Non-tender. Respiratory: No respiratory distress. Clear and equal breath sounds bilaterally. Bilateral anterior chest wall tenderness with palpation. Cardiovascular: Regular rate and rhythm. Abdominal: Normal Inspection. Non-tender. No distension. Normal Bowel Sounds. Back: Non-tender. No deformity or step off. Extremities: Moves all four extremities. Upper extremities: Normal inspection. Normal ROM. Exaggerated movements of right shoulder and right elbow without any pain. Lower extremities: Normal inspection. No edema. Normal ROM. Neurological: Normal cognition. AAOx4. Normal speech. Psychological: Normal affect. Normal Mood. Skin: Warm. Dry. Normal color. (TERRENCE VIVAR) Course - Laboratory Result Diagrams: 01/01/18 22:49 01/01/18 22:49 <TERRENCE VIVAR - Last Filed: 01/01/18 23:38> - Laboratory Result Diagrams: 01/01/18 22:49 01/01/18 22:49 - EKG Interpretation by In EKG shows normal: Sinus rhythm, [place], Intervals, QRS Complexes, ST-T Waves Rate: Normal - 96 Rhythm: NSR When compared to previous EKG there are: No significant change <HEBER SYKES - Last Filed: 01/02/18 02:39> - Vital Signs Vital signs: Temp Pulse Resp BP Pulse Ox 97.4 F 92 15 136/96 H 96 01/01/18 22:25 01/01/18 22:25 01/01/18 23:00 01/01/18 23:00 01/01/18 23:00 - Laboratory Laboratory results interpreted by me: 01/01/18 01/02/18 22:49 01:00 Carbon Dioxide 21 L Creatinine 1.42 H Est GFR (Non-Af Amer) 55 L Calcium 10.4 H Creatine Kinase 877 H Total Protein 8.5 H Urine Protein 30 H Urine Ketones TRACE H Urine Urobilinogen 2.0 H Ur Leukocyte Esterase TRACE H Urine Ascorbic Acid 40 H Discharge <TERRENCE VIVAR - Last Filed: 01/01/18 23:38> <HEBER SYKES - Last Filed: 01/02/18 02:39> - Discharge Clinical Impression: Musculoskeletal pain, chronic, Borderline hypertension, Renal insufficiency Rhabdomyolysis Qualifiers: Rhabdomyolysis type: non-traumatic Qualified Code(s): M62.82 - Rhabdomyolysis Condition: Stable Disposition: HOME, SELF-CARE Additional Instructions: Kidney Function Abnormality: Your evaluation has shown an abnormality of your kidney function. An abnormal kidney function test can be caused by dehydration, acute kidney damage , blood vessel disease (such as with diabetes or chronic high blood pressure), or just old age. If the abnormality is caused by an acute disease, it may reverse completely. Have a repeat test. If it's normal, don't worry about your kidneys. If you have a chronic kidney problem, you must be careful with medicines and medical tests. Be sure any doctor who prescribes medicine or orders tests knows that your kidney tests have been abnormal. Some medicines must have the dose reduced, other medicines must be avoided. If the doctor has recommended further workup, be sure to follow up as instructed. Call us if you have new flank pain, vomiting, confusion, or if you' re unable to urinate. Rhabdomyolysis: Your muscle enzyme levels are quite high in your bloodstream. This can be due to dehydration, becoming overheated, certain medications used to treat cholesterol, or injury to the muscles from over exertion. It is very important that you drink plenty of fluids to help flush the elevated muscle enzymes out of your bloodstream. Your kidney function abnormality shows a decrease in however your kidneys are working compared to the last time he had lab work done here in 2017. Your elevated muscle enzymes will put your kidney function at risk if you do not hydrate yourself. You should drink plenty of fluids throughout the day and the evening for the next several days. Follow-up with your doctor on Wednesday to recheck your kidney function, your muscle enzyme levels, and your blood pressure. RETURN TO THE EMERGENCY ROOM IF ANY NEW OR WORSENING SYMPTOMS. Referrals: AUDI PAT MD [Primary Care Provider] - 01/03/18 Scribe Attestation: 01/02/18 00:03 I personally performed the services described in the documentation, reviewed and edited the documentation which was dictated to the scribe in my presence, and it accurately records my words and actions. (HEBER SYKES) Scribe Documentation - Scribe Written by Scribe:: Benny Hays, 01/01/2018 [id number] acting as scribe for :: Mani <TERRENCE VIVAR - Last Filed: 01/01/18 23:38>
[2018-01-02] MEDS ORDERED: DEXTROSE 5%-LACTATED RINGERS 1,000 ML IV ONE (00:34)
[2018-01-02 01:18] LABS: APPEARANCE,URINE CLEAR; BILIRUBIN,URINE NEGATIVE (NEGATIVE); COLOR,URINE YELLOW; GLUCOSE, URINE NEGATIVE (NEGATIVE); KETONES,URINE TRACE mg/dL (NEGATIVE); LEUKOCYTE ESTERASE,URINE TRACE (NEGATIVE); NITRITE,URINE NEGATIVE (NEGATIVE); PROTEIN,URINE 30 mg/dL (NEGATIVE); URINE SPECIFIC GRAVITY 1.027
[2018-01-02] MEDS ORDERED: RINGERS SOLUTION,LACTATED 1,000 ML IV ONE (01:39)
[2018-01-02] MEDS ORDERED: NORMAL SALINE 1000 ML 1,000 ML IV ONE (02:09)
[2018-01-02 02:53] VITALS: BP 130/86
--- NOTE | 2018-01-02 08:30 | EKG REPORT ---
SEVERITY:- NORMAL ECG - SINUS RHYTHM : Confirmed by: Chaka Scott MD 02-Jan-2018 08:29:55
== END 2018-01-02 03:03 | disposition home or self-care (01) ==
LOC: ER 21:47
DX: M62.82 Rhabdomyolysis (principal); G89.29 Other chronic pain; N28.9 Disorder of kidney and ureter, unspecified; I10 Essential (primary) hypertension; R07.9 Chest pain, unspecified; R51 Headache; M25.511 Pain in right shoulder; M25.521 Pain in right elbow; M54.2 Cervicalgia; K21.9 Gastro-esophageal reflux disease without esophagitis; F17.200 Nicotine dependence, unspecified, uncomplicated; F12.10 Cannabis abuse, uncomplicated
CPT/HCPCS: 93005; 99285; 96360; 96361; 36415; 82553; 82550; 85025; 80053; 81001; 84484; 71045; 93010; J7030

== ENCOUNTER 2018-01-18 15:43 | Emergency (ER) | payer MEDICAID ==
[2018-01-18 15:51] VITALS: BP 128/93
== END 2018-01-18 16:59 | disposition left against medical advice (07) ==
LOC: ER 15:43
DX: Z53.21 Procedure and treatment not carried out due to patient leaving prior to being seen by health care provider (principal)

== ENCOUNTER 2018-07-07 09:17 | Emergency (ER) | payer MEDICAID ==
[2018-07-07 09:25] VITALS: BP 131/76
--- NOTE | 2018-07-07 09:51 | ER Document Report ---
HPI - HPI Patient complains to provider of: Flulike symptoms Time Seen by Provider: 07/07/18 09:43 Onset: Other - 2 day Quality of pain: Achy Severity: Severe Pain Level: 4 Context: Presents emergency department with complaints of flulike symptoms for the past 2 days. Patient reports he had body aches this morning when he woke up so he called into work. Denies fever denies vomiting diarrhea. Reports cold runny nose congestion. Associated Symptoms: Body/muscle aches, Sore throat Exacerbated by: Denies Relieved by: Denies Similar symptoms previously: No Recently seen / treated by doctor: No Past Medical History - General Information source: Patient - Social History Smoking Status: Current Every Day Smoker Cigarette use (# per day): Yes Frequency of alcohol use: None Drug Abuse: None Occupation: [employer] Lives with: Family Family History: Arthritis, CVA, DM, Hyperlipidemia, Hypertension, Malignancy, Thyroid Disfunction - Past Medical History Cardiac Medical History: Reports: Hx Hypercholesterolemia - not medicated, Hx Hypertension - not medicated Neurological Medical History: Reports: Hx Migraine Renal/ Medical History: Denies: Hx Peritoneal Dialysis Musculoskeletal Medical History: Reports Hx Arthritis, Reports Hx Musculoskeletal Deformity - chronic back pain and joint pain, Reports Hx Musculoskeletal Trauma - hairline fracture in left hip Psychiatric Medical History: Reports: Hx Bipolar Disorder, Hx Schizophrenia Traumatic Medical History: Reports: Hx Fractures - left hip Past Surgical History: Reports: Other - Corneal transplant - Immunizations Hx Diphtheria, Pertussis, Tetanus Vaccination: Yes - October 20, 2016 Vertical Provider Document - CONSTITUTIONAL Agree With Documented VS: Yes Exam Limitations: No Limitations General Appearance: WD/WN, No Apparent Distress - Nontoxic looking - INFECTION CONTROL TRAVEL OUTSIDE OF THE [place] IN LAST 30 DAYS: No - HEENT HEENT: Atraumatic, Normal ENT Exam, Normocephalic. negative: Conjuctival Inject ion, Pharyngeal Exudate, Pharyngeal Tenderness, Pharyngeal Erythema, Tympanic Membrane Red, Tympanic Membrane Bulging - NECK Neck: Normal Inspection, Supple. negative: Lymphadenopathy-Left, Lymphadenopathy-Right - RESPIRATORY Respiratory: Breath Sounds Normal, No Respiratory Distress - CARDIOVASCULAR Cardiovascular: Regular Rate, Regular Rhythm - GI/ABDOMEN Gastrointestinal: Abdomen Soft, Abdomen Non-Tender - MUSCULOSKELETAL/EXTREMETIES Musculoskeletal/Extremeties: MANASRIN, FROM - NEURO Level of Consciousness: Awake, Alert, Appropriate Motor/Sensory: No Motor Deficit - DERM Integumentary: Warm, Dry Course - Re-evaluation Re-evalutation: 07/07/18 10:25 Patient looks good nontoxic reports he is eating drinking as normal. Patient was encouraged to push fluids take Motrin for his body aches good handwashing and follow-up with primary care provider for further complaints he verbalized understanding to all instructions Dictation of this chart was performed using voice recognition software; therefore, there may be some unintended grammatical errors. - Vital Signs Vital signs: Temp Pulse Resp BP Pulse Ox 98.3 F 66 16 131/76 H 97 07/07/18 09:24 07/07/18 09:24 07/07/18 09:24 07/07/18 09:24 07/07/18 09:24 Discharge - Discharge Clinical Impression: Flu-like symptoms Condition: Stable Disposition: HOME, SELF-CARE Instructions: Use of [id number] Ibuprofen ([facility]) Additional Instructions: *You have been evaluated for flu like symptoms *Increase fluid intake as discussed *Monitor your temperature, take Tylenol or motrin as indicated *Follow up with a primary care provider within one week for recheck *Return to ED for worsening condition, changes, needs Monitor your blood pressure. Your blood pressure was elevated today. This may be because you were anxious, in pain or because you need medication. It is important to follow up with your primary care provider for full evaluation. Forms: Elevated Blood Pressure, Return to Work Referrals: AUDI PAT MD [ACTIVE STAFF] - Follow up in 3-5 days
== END 2018-07-07 10:12 | disposition home or self-care (01) ==
LOC: ER 09:17
DX: J02.9 Acute pharyngitis, unspecified (principal); M79.10 Myalgia, unspecified site; F17.210 Nicotine dependence, cigarettes, uncomplicated; E78.00 Pure hypercholesterolemia, unspecified; I10 Essential (primary) hypertension
CPT/HCPCS: 99283

== ENCOUNTER 2018-08-28 08:36 | Emergency (ER) | payer MEDICAID ==
[2018-08-28] MEDS ORDERED: ACETAMINOPHEN 325 MG TABLET PO ONE (09:32)
--- NOTE | 2018-08-28 09:34 | ER Document Report ---
ED Hip Pain/Injury - General Chief Complaint: Hip Pain Stated Complaint: HIP PAIN Time Seen by Provider: 08/28/18 09:23 Primary Care Provider: [facility] [Provider Group] - Follow up as needed [facility] [Provider Group] - Follow up as needed Mode of Arrival: Ambulatory Information source: Patient Notes: 43-year-old male presents to ED for complaint of left hip pain. He states he fractured his hip years ago and has been seeing Dr. Rodríguez and he told him that he does have a hairline fracture of his hip from long time ago and this is why he is hurting. Patient is alert oriented respirations regular and unlabored speaking in full sentences walks with a even steady gait. TRAVEL OUTSIDE OF THE [place] IN LAST 30 DAYS: No - HPI Patient complains to provider of: Pain, Hip, Pelvis Occurred: Other - Chronic Onset/Duration: Persistent Quality of pain: Sharp Severity: Severe Pain Level: 5 Context: Other - Previous fractured hip Symptoms prior to fall: None Symptoms since fall: None Skin Color: Normal Rotation of extremity: None Pain with palpation of the pelvis: Yes Associated Symptoms: None - Related Data Allergies/Adverse Reactions: No Known Allergies Allergy (Verified 08/28/18 08:37) Past Medical History - General Information source: Patient - Social History Smoking Status: Current Every Day Smoker Cigarette use (# per day): Yes - Pack per day Smoking Education Provided: Yes Frequency of alcohol use: None - 2-3 beer a day Drug Abuse: None Lives with: Family Family History: Arthritis, CVA, DM, Hyperlipidemia, Hypertension, Malignancy, Thyroid Disfunction Patient has suicidal ideation: No Patient has homicidal ideation: No - Past Medical History Cardiac Medical History: Reports: Hx Hypercholesterolemia - not medicated, Hx Hypertension - not medicated Pulmonary Medical History: Reports: None EENT Medical History: Reports: None Neurological Medical History: Reports: Hx Migraine Endocrine Medical History: Reports: None Renal/ Medical History: Reports: None Malignancy Medical History: Reports None GI Medical History: Reports: None Musculoskeletal Medical History: Reports Hx Arthritis, Reports Hx Musculoskeletal Deformity - chronic back pain and joint pain, Reports Hx Musculoskeletal Trauma - hairline fracture in left hip Skin Medical History: Reports None Psychiatric Medical History: Reports: Hx Bipolar Disorder, Hx Schizophrenia Traumatic Medical History: Reports: Hx Fractures - left hip Infectious Medical History: Reports: None Past Surgical History: Reports: Other - Corneal transplant - Immunizations Hx Diphtheria, Pertussis, Tetanus Vaccination: Yes - October 20, 2016 Review of Systems - Review of Systems Constitutional: No symptoms reported EENT: No symptoms reported Cardiovascular: No symptoms reported Respiratory: No symptoms reported Gastrointestinal: No symptoms reported Genitourinary: No symptoms reported Male Genitourinary: No symptoms reported Musculoskeletal: Joint pain - Left hip Skin: No symptoms reported Hematologic/Lymphatic: No symptoms reported Neurological/Psychological: No symptoms reported -: Yes All other systems reviewed and negative Physical Exam - Vital signs Vitals: Temp Pulse Resp BP Pulse Ox 98 F 70 14 132/83 H 97 08/28/18 08:39 08/28/18 08:39 08/28/18 08:39 08/28/18 08:39 08/28/18 08:39 Interpretation: Normal - General General appearance: Appears well, Alert - HEENT Head: Normocephalic, Atraumatic Eyes: Normal Pupils: PERRL - Respiratory Respiratory status: No respiratory distress Chest status: Nontender Breath sounds: Normal Chest palpation: Normal - Cardiovascular Rhythm: Regular Heart sounds: Normal auscultation Murmur: No - Abdominal Inspection: Normal Distension: No distension Bowel sounds: Normal Tenderness: Nontender Organomegaly: No organomegaly - Back Back: Normal, Nontender - Extremities General upper extremity: Normal inspection, Nontender, Normal color, Normal ROM, Normal temperature General lower extremity: Nontender, Normal color, Normal ROM, Normal temperature, Normal weight bearing - Pain with ambulation. No: Wander's sign Hip: Tender, Pain with ROM. No: Abrasion, Deformity, Dislocation, Ecchymosis, Instability, Laceration, Unable to bear weight - Neurological Neuro grossly intact: Yes Cognition: Normal Orientation: AAOx4 [place] Coma Scale Eye Opening: Spontaneous [place] Coma Scale Verbal: Oriented [place] Coma Scale Motor: Obeys Commands Shelley Coma Scale Total: 15 Speech: Normal Motor strength normal: LUE, RUE, LLE, RLE Sensory: Normal - Psychological Associated symptoms: Normal affect, Normal mood - Skin Skin Temperature: Warm Skin Moisture: Dry Skin Color: Normal Course - Vital Signs Vital signs: Temp Pulse Resp BP Pulse Ox 97.8 F 67 16 133/88 H 97 08/28/18 10:57 08/28/18 10:57 08/28/18 10:57 08/28/18 10:57 08/28/18 10:57 - Diagnostic Test Radiology reviewed: Image reviewed, Reports reviewed Discharge - Discharge Clinical Impression: Hip pain Qualifiers: Laterality: right Qualified Code(s): M25.551 - Pain in right hip Disposition: HOME, SELF-CARE Instructions: Family Physicians / Practices Additional Instructions: You were seen today for pain in your right hip. Your x-ray was negative for any fractures or any definite problems. I have given you names and numbers of orthopedics and pain management to follow- up with. Acetaminophen Acetaminophen may be taken for pain relief or fever control. It's much safer than aspirin, offering a wider range of "safe" dosages. It is safe during . Some brand names are Tylenol, Panadol, Datril, Anacin 3, Tempra, and Liquiprin. Acetaminophen can be repeated every four hours. The following are maximum recommended dosages: WEIGHT Dose Drops Elixir Chewable(80mg) (LBS.) drprs=droppers tsp=teaspoon 6 40 mg .4 ml (1/2) 6-11 80 mg .8 ml (full) 1/2 tsp 1 tab 12-16 120 mg 1 1/2 drprs 3/4 tsp 1 1/2 tabs 17-23 160 mg 2 drprs 1 tsp 2 tabs 24-30 240 mg 3 drprs 1 1/2 tsp 3 tabs 30-35 320 mg 2 tsp 4 tabs 36-41 360 mg 2 1/4 tsp 4 1/2 tabs 42-47 400 mg 2 1/2 tsp 5 tabs 48-53 480 mg 3 tsp 6 tabs 54-59 520 mg 3 1/4 tsp 6 1/2 tabs 60-64 560 mg 3 1/2 tsp 7 tabs 65-70 600 mg 3 3/4 tsp 7 1/2 tabs 71-76 640 mg 4 tsp 8 tabs 77-82 720 mg 4 1/2 tsp 9 tabs 83-88 800 mg 5 tsp 10 tabs >89 pounds or adults 650 mg to 900 mg Acetaminophen can be repeated every four hours. Maximum daily dose not to exceed 4000 mg. These maximum recommended dosages are slightly higher than the dosages written on the product container, but these dosages are very safe and well below the toxic dosage for acetaminophen. Ibuprofen Ibuprofen is an excellent, safe drug for pain control. In addition, it has potent antiinflammatory effects which are beneficial, especially in the tr eatment of injuries, arthritis, or tendonitis. It's best to take ibuprofen with food. Persons with ulcer disease or allergy to aspirin should notify their physician of this before taking ibuprofen. Take the medication exactly as prescribed. Don't take additional doses unless instructed to do so by your doctor. If you develop wheezing, shortness of breath, hives, faintness, stomach pain, vomiting, or dark black stools, return for re-evaluation at once. FOLLOW-UP CARE: If you have been referred to a physician for follow-up care, call the physicians office for an appointment as you were instructed or within the next two days. If you experience worsening or a significant change in your symptoms, notify the physician immediately or return to the Emergency Department at any time for re-evaluation. Forms: Elevated Blood Pressure, Smoking Cessation Education, Return to Work Referrals: [facility] [Provider Group] - Follow up as needed [facility] [[facility]] - Follow up as needed
--- NOTE | 2018-08-28 10:10 | RADIOLOGY REPORT (SQ) ---
EXAM DESCRIPTION: HIP LEFT AP/LATERAL COMPLETED DATE/TIME: 08/28/2018 9:59 am REASON FOR STUDY: pain worse at work COMPARISON: None. NUMBER OF VIEWS: Two views. TECHNIQUE: AP pelvis and additional frog-leg view of the left hip. LIMITATIONS: None. FINDINGS: MINERALIZATION: Normal. LEFT HIP: No fracture or dislocation. No worrisome bone lesions. No contour deformity. No joint spa ce narrowing. RIGHT HIP: No fracture or dislocation. No worrisome bone lesions. PUBIS AND ISCHIUM: No fracture. PELVIS: No fracture. SACRUM: No fracture or dislocation. No worrisome bone lesions. LOWER LUMBAR SPINE: No fracture or dislocation. No worrisome bone lesions. No significant disc disea se. SOFT TISSUES: No findings. OTHER: No other significant finding. IMPRESSION: NEGATIVE STUDY OF THE LEFT HIP AND PELVIS. NO EXPLANATION FOR PAIN. TECHNICAL DOCUMENTATION: JOB ID: [id number] [employer]- All Rights Reserved Reading location - IP/workstation name: [email or web address]
[2018-08-28 11:00] VITALS: BP 133/88
== END 2018-08-28 11:00 | disposition home or self-care (01) ==
LOC: ER 08:36
DX: M25.552 Pain in left hip (principal); X58.XXXA Exposure to other specified factors, initial encounter; F17.210 Nicotine dependence, cigarettes, uncomplicated; I10 Essential (primary) hypertension
CPT/HCPCS: 99283; 73502; J3490

== ENCOUNTER 2018-10-05 08:17 | Emergency (ER) | payer MEDICAID ==
[2018-10-05 08:24] VITALS: BP 133/68
--- NOTE | 2018-10-05 09:05 | ER Document Report ---
HPI - HPI Patient complains to provider of: left shoulder pain, right mid back Time Seen by Provider: 10/05/18 08:53 Onset: Other Quality of pain: Achy Severity: Severe Pain Level: 4 Context: Patient presents to the emergency department with complaints of left shoulder pain for over a month. 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 He also reports of right-sided mid back pain that radiates down his leg after working in the yard yesterday. Denies urinary bowel incontinence or retention denies numbness or tingling. Denies trauma. No other complaints such as fever vomiting diarrhea. 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 Family History: Arthritis, CVA, DM, Hyperlipidemia, Hypertension, Malignancy, Thyroid Disfunction - Past Medical History Cardiac Medical History: Reports: Hx Hypercholesterolemia - not medicated, Hx Hypertension - not medicated Neurological Medical History: Reports: Hx Migraine Renal/ Medical History: Denies: Hx Peritoneal Dialysis Musculoskeletal Medical History: Reports Hx Arthritis, Reports Hx Musculoskel etal Deformity - chronic back pain and joint pain, Reports Hx Musculoskeletal Trauma - hairline fracture in left hip Psychiatric Medical History: Reports: Hx Bipolar Disorder, Hx Schizophrenia Traumatic Medical History: Reports: Hx Fractures - left hip Past Surgical History: Reports: Other - Corneal transplant - Immunizations Hx Diphtheria, Pertussis, Tetanus Vaccination: Yes - October 20, 2016 Vertical Provider Document - CONSTITUTIONAL Agree With Documented VS: Yes Exam Limitations: No Limitations General Appearance: WD/WN, No Apparent Distress - nonToxic looking smiles easily - INFECTION CONTROL TRAVEL OUTSIDE OF THE [place] IN LAST 30 DAYS: No - HEENT HEENT: Atraumatic, Normocephalic - NECK Neck: Normal Inspection, Supple. negative: Lymphadenopathy-Left, Lymphadenopathy-Right - RESPIRATORY Respiratory: Breath Sounds Normal, No Respiratory Distress - CARDIOVASCULAR Cardiovascular: Regular Rate - GI/ABDOMEN Gastrointestinal: Abdomen Soft, Abdomen Non-Tender - BACK Back: Normal Inspection - no vertebral tendernsess No obvious deformity complaints of mid back pain radiating down his left side. No weakness good distal movement and sensation good reflexes - MUSCULOSKELETAL/EXTREMETIES Musculoskeletal/Extremeties: JACOBO, FROM, Tender - complains of left shoulder pain, has full range of motion no weakness no obvious deformity no erythema no swelling no warmth - NEURO Level of Consciousness: Awake, Alert, Appropriate Motor/Sensory: No Motor Deficit - DERM Integumentary: Warm, Dry Adult Front & Back Diagram: 1 - left shoulder pain 2 - midback pain radiating down his leg Course - Re-evaluation Re-evalutation: 10/05/18 10:53 Patient was instructed on muscle relaxers Motrin for pain. He was instructed on red flags of back pain to follow-up within 1 week for recheck. He was also given a list of primary care providers he verbalized understanding all instructions. Dictation of this chart was performed using voice recognition software; therefore, there may be some unintended grammatical errors. - Vital Signs Vital signs: Temp Pulse Resp BP Pulse Ox 98.2 F 68 14 133/68 H 97 10/05/18 08:23 10/05/18 08:23 10/05/18 08:23 10/05/18 08:23 10/05/18 08:23 Discharge - Discharge Clinical Impression: Pain in left shoulder Qualifiers: Chronicity: unspecified Qualified Code(s): M25.512 - Pain in left shoulder Back pain Qualifiers: Back pain location: back pain in unspecified location Chronicity: unspecified Back pain laterality: left Qualified Code(s): M54.9 - Dorsalgia, unspecified Condition: Stable Disposition: HOME, SELF-CARE Instructions: Family Physicians / Practices, Use of [id number] Ibuprofen ([facility]), Ice Packs ([facility]), Low Back Pain ([facility]), Muscle Relaxers ([facility]), Muscle Strain ([facility]), Warm Packs ([facility]) Additional Instructions: *You have been evaluated for shoulder and back pain *Take medication as prescribed *Rest/Ice- heat as directed *Follow up with a primary care provider within one week for recheck *Return to ED for worsening condition, changes, needs Monitor your blood pressure. Your blood pressure was elevated today. This may be because you were anxious, in pain or because you need medication. It is important to follow up with your primary care provider for full evaluation. Prescriptions: Cyclobenzaprine HCl [Flexeril 5 mg Tablet] 5 mg PO TID #15 tablet Forms: Elevated Blood Pressure, Return to Work
== END 2018-10-05 09:16 | disposition home or self-care (01) ==
LOC: ER 08:17
DX: M25.512 Pain in left shoulder (principal); M54.89 Other dorsalgia; F17.210 Nicotine dependence, cigarettes, uncomplicated; I10 Essential (primary) hypertension
CPT/HCPCS: 99283

== ENCOUNTER 2018-12-06 23:43 | Emergency (ER) | payer MEDICAID ==
[2018-12-07 00:25] VITALS: BP 137/82
== END 2018-12-07 01:20 | disposition left against medical advice (07) ==
LOC: ER 23:43
DX: Z53.21 Procedure and treatment not carried out due to patient leaving prior to being seen by health care provider (principal)

== ENCOUNTER 2018-12-28 16:43 | Emergency (ER) | payer MEDICAID ==
[2018-12-28 16:49] VITALS: BP 147/89
--- NOTE | 2018-12-28 19:26 | ER Document Report ---
HPI - HPI Time Seen by Provider: 12/28/18 19:06 Pain Level: 5 Context: Patient is a 43-year-old male who presents to the emergency department with a chief complaint of left ear pain. Patient states his ear pain has been intermittent since 2010 but over the past year has increased in intensity. Patient denies injury, drainage from the ear, difficulty hearing, fever or any other concerning signs or symptoms. Patient also complains of left upper and lower dental pain. Patient states this has been present for 1 year. Patient states 1 year ago he did see a dentist and had multiple teeth removed and was supposed to return for a follow-up but never did. Patient also states that he does have a primary care physician but has not been to them in a while. - CONSTITUTIONAL Constitutional: DENIES: Fever, Chills - EENT EENT: REPORTS: Ear Pain - left ear. DENIES: Sore Throat, Eye problems - NEURO Neurology: REPORTS: Headache. DENIES: Weakness, Vision blurred, Dizzinesss / Vertigo - CARDIOVASCULAR Cardiovascular: DENIES: Chest pain - RESPIRATORY Respiratory: DENIES: Trouble Breathing, Coughing - GASTROINTESTINAL Gastrointestinal: DENIES: Abdominal Pain - URINARY Urinary: DENIES: Dysuria, Urgency, Frequency - MUSCULOSKELETAL Musculoskeletal: DENIES: Extremity pain Past Medical History - General Information source: Patient - Social History Smoking Status: Current Every Day Smoker Chew tobacco use (# tins/day): Yes - occasional Frequency of alcohol use: daily Drug Abuse: None Lives with: Alone Family History: Arthritis, CVA, DM, Hyperlipidemia, Hypertension, Malignancy, Thyroid Disfunction Patient has suicidal ideation: No Patient has homicidal ideation: No - Past Medical History Cardiac Medical History: Reports: Hx Hypercholesterolemia - not medicated, Hx Hypertension - not medicated Pulmonary Medical History: Reports: None EENT Medical History: Reports: None Neurological Medical History: Reports: Hx Migraine Endocrine Medical History: Reports: None Renal/ Medical History: Reports: None. Denies: Hx Peritoneal Dialysis Malignancy Medical History: Reports None GI Medical History: Reports: None Musculoskeletal Medical History: Reports Hx Arthritis, Reports Hx Musculoskeletal Deformity - chronic back pain and joint pain, Reports Hx Musculoskeletal Trauma - hairline fracture in left hip Skin Medical History: Reports None Psychiatric Medical History: Reports: Hx Bipolar Disorder, Hx Schizophrenia Traumatic Medical History: Reports: Hx Fractures - left hip Infectious Medical History: Reports: None Past Surgical History: Reports: Other - Corneal transplant - Immunizations Hx Diphtheria, Pertussis, Tetanus Vaccination: Yes - October 20, 2016 Vertical Provider Document - CONSTITUTIONAL Agree With Documented VS: Yes Exam Limitations: No Limitations General Appearance: No Apparent Distress - INFECTION CONTROL TRAVEL OUTSIDE OF THE [place] IN LAST 30 DAYS: No - HEENT HEENT: Atraumatic, Normocephalic, PERRLA Notes: There are multiple missing teeth that appear to have been pulled and healed appropriately throughout the mouth. Patient is complaining of left upper dental pain. I do not visualize any erythema to the gums, palpable abscess, drainage, tooth tenderness with palpation to the upper and lower mouth. Patient's airway is patent, uvula is midline, throat is unremarkable without erythema, swelling or exudate, there is no tonsil inflammation. I did perform a bilateral ear exam, there was no mastoid tenderness, tragus tenderness or pinna tenderness. Patient's ear canals are patent and I was able to easily visualize the tympanic membrane which was pearly gallagher with visualized landmarks. There was no erythema or bulging. - NECK Neck: Normal Inspection, Supple - RESPIRATORY Respiratory: Breath Sounds Normal, No Respiratory Distress - CARDIOVASCULAR Cardiovascular: Regular Rate, Regular Rhythm - GI/ABDOMEN Gastrointestinal: Abdomen Soft, Abdomen Non-Tender, Normal Bowel Sounds - NEURO Level of Consciousness: Awake, Alert, Appropriate - DERM Integumentary: Warm, Dry, No Rash Course - Re-evaluation Re-evalutation: 12/28/18 19:24 Patient is in no acute distress at this time. It appears that patient's symptoms are very chronic and I do not find any acute infection that needs to be treated with an antibiotic. I did inform the patient to follow-up with his PCP who is Dr. Romain Meza and to follow-up with his dentist. Patient states he does have insurance and can make that happen. - Vital Signs Vital signs: Temp Pulse Resp BP Pulse Ox 98.3 F 77 17 147/89 H 96 12/28/18 16:47 12/28/18 16:47 12/28/18 16:47 12/28/18 16:47 12/28/18 16:47 Discharge - Discharge Clinical Impression: Chronic dental pain, Chronic left ear pain Condition: Stable Disposition: HOME, SELF-CARE Additional Instructions: Today you were seen in the emergency department for left ear and dental pain. Your physical examination was unremarkable. It does appear that your ear pain and dental pain are chronic as they have been present for over 1 year. Please follow-up with your primary care physician as well as a dentist to have these chronic issues looked at. I would also recommend due to your age and history having a physical exam and basic labs drawn by your primary care physician. Please return to the emergency department if you have any concerning signs or symptoms that change such as fever, difficulty breathing or swallowing, severe ear pain, ear drainage or any other concerning signs or symptoms. Referrals: ROMAIN MZEA MD [Primary Care Provider] - Follow up as needed
[2018-12-28] MEDS ORDERED: ACETAMINOPHEN 325 MG TABLET PO ONE (19:28)
== END 2018-12-28 19:33 | disposition home or self-care (01) ==
LOC: ER 16:43
DX: H92.02 Otalgia, left ear (principal); K08.89 Other specified disorders of teeth and supporting structures; G89.29 Other chronic pain; R51 Headache; F17.200 Nicotine dependence, unspecified, uncomplicated; I10 Essential (primary) hypertension; Z86.69 Personal history of other diseases of the nervous system and sense organs; K08.409 Partial loss of teeth, unspecified cause, unspecified class
CPT/HCPCS: 99282

== ENCOUNTER 2019-02-23 22:41 | Emergency (ER) | payer MEDICAID | END 2019-02-23 23:16 | disposition left against medical advice (07) | LOC: ER 22:41 | DX: Z53.21 Procedure and treatment not carried out due to patient leaving prior to being seen by health care provider (principal) ==

== ENCOUNTER 2019-05-19 07:16 | Emergency (ER) | payer MEDICAID ==
[2019-05-19 08:14] LABS: ABSOLUTE EOSINOPHILS # (AUTO) 0.1 10^3/uL (0.0-0.6); ABSOLUTE LYMPHOCYTES (AUTO) 1.6 10^3/uL (0.5-4.7); ABSOLUTE MONOCYTES (AUTO) 0.6 10^3/uL (0.1-1.4); ABSOLUTE NEUT (AUTO) 2.6 10^3/uL (1.7-8.2); BASOPHILS % (AUTO) 0.6 % (0-2); EOSINOPHILS % (AUTO) 2.3 % (0-6); HEMATOCRIT 41.9 % (37.9-51.0); HEMOGLOBIN 14.4 g/dL (13.5-17.0); LYMPHOCYTES % (AUTO) 32.3 % (13-45); MEAN CORPUSCULAR HEMOGLOBIN 30.9 pg (27.0-33.4); MEAN CORPUSCULAR HGB CONC 34.4 g/dL (32.0-36.0); MEAN CORPUSCULAR VOLUME 90 fl (80-97); MONOCYTES % (AUTO) 11.4 % (3-13); PLATELET COUNT 310 10^3/uL (150-450); RED BLOOD COUNT 4.67 10^6/uL (4.35-5.55); RED CELL DISTRIBUTION WIDTH 13.8 % (11.5-14.0); SEGMENTED NEUTROPHILS % (AUTO) 53.4 % (42-78); TOTAL CELLS COUNTED % (AUTO) 100 %; WHITE BLOOD COUNT 4.9 10^3/uL (4.0-10.5)
--- NOTE | 2019-05-19 08:30 | RADIOLOGY REPORT (SQ) ---
EXAM DESCRIPTION: CHEST 2 VIEWS COMPLETED DATE/TIME: 05/19/2019 8:13 am REASON FOR STUDY: chest pain COMPARISON: AP view of the chest from 01/01/2018 EXAM PARAMETERS: NUMBER OF VIEWS: two views TECHNIQUE: PA and lateral views of the chest were obtained. RADIATION DOSE: NA LIMITATIONS: none FINDINGS: LUNGS AND PLEURA: No consolidation, pleural effusion or pneumothorax. MEDIASTINUM AND HILAR STRUCTURES: No mediastinal or hilar contour abnormality. HEART AND VASCULAR STRUCTURES: The cardiac silhouette and pulmonary vasculature are within normal garcias its. BONES: No acute findings. HARDWARE: None in the chest. OTHER: No other finding. IMPRESSION: No acute cardiopulmonary process. TECHNICAL DOCUMENTATION: JOB ID: [id number] [employer]- All Rights Reserved Reading location - IP/workstation name: [email or web address]
[2019-05-19 08:32] LABS: ALBUMIN 3.6 g/dL (3.5-5.0); ALKALINE PHOSPHATASE 52 U/L (38-126); ANION GAP 5 (5-19); ASPARTATE AMINO TRANSFERASE 29 U/L (17-59); BILIRUBIN,TOTAL 0.6 mg/dL (0.2-1.3); BLOOD UREA NITROGEN 11 mg/dL (7-20); CALCIUM 9.5 mg/dL (8.4-10.2); CARBON DIOXIDE 27 mmol/L (22-30); CHLORIDE 107 mmol/L (98-107); CREATINE KINASE 321 U/L (55-170); GLUCOSE 91 mg/dL (75-110); POTASSIUM 4.6 mmol/L (3.6-5.0)
[2019-05-19 08:44] LABS: CREATINE KINASE MB 1.21 ng/mL (<4.55)
[2019-05-19 08:53] LABS: TROPONIN I < 0.012 ng/mL
--- NOTE | 2019-05-19 09:21 | ER Document Report ---
ED General - General Chief Complaint: Chest Pain Stated Complaint: CHEST PAIN, CONJESTION, FEVER Time Seen by Provider: 05/19/19 08:59 Primary Care Provider: FLOR MEZA MD [Primary Care Provider] - Follow up as needed Mode of Arrival: Ambulatory Information source: Patient Notes: 43-year-old man presents to the emergency department with a complaint of nasal congestion with drainage and cough. He also notes left-sided chest pain and denies shortness of breath or fever. He is a smoker, denies known history of pneumonia or respiratory illness. Presently he is taking no medications for the congestion. He complained of chest pain at the time of triage however states that his symptoms have improved at this time. TRAVEL OUTSIDE OF THE [place] IN LAST 30 DAYS: No - Related Data Allergies/Adverse Reactions: No Known Allergies Allergy (Verified 05/19/19 07:25) Past Medical History - Social History Smoking Status: Unknown if Ever Smoked Family History: Arthritis, CVA, DM, Hyperlipidemia, Hypertension, Malignancy, Thyroid Disfunction Patient has suicidal ideation: No Patient has homicidal ideation: No - Past Medical History Cardiac Medical History: Reports: Hx Hypercholesterolemia - not medicated, Hx Hypertension - not medicated Neurological Medical History: Reports: Hx Migraine Renal/ Medical History: Denies: Hx Peritoneal Dialysis Musculoskeletal Medical History: Reports Hx Arthritis, Reports Hx Musculoskeletal Deformity - chronic back pain and joint pain, Reports Hx Musculoskeletal Trauma - hairline fracture in left hip Psychiatric Medical History: Reports: Hx Bipolar Disorder, Hx Schizophrenia Traumatic Medical History: Reports: Hx Fractures - left hip Past Surgical History: Reports: Other - Corneal transplant - Immunizations Hx Diphtheria, Pertussis, Tetanus Vaccination: Yes - October 20, 2016 Review of Systems - Review of Systems Notes: Constitutional: + Fever. HENT: + Nasal congestion, negative for sore throat. Eyes: Negative for visual changes. Cardiovascular: + Chest pain. Respiratory: + Cough, negative for shortness of breath. Gastrointestinal: Negative for abdominal pain, vomiting or diarrhea. Genitourinary: Negative for dysuria. Musculoskeletal: Negative for back pain. Skin: Negative for rash. Neurological: Negative for headaches, weakness or numbness. 10 point ROS negative except as marked above and in HPI. Physical Exam - Vital signs Vitals: Temp Pulse Resp BP Pulse Ox 98.2 F 75 16 139/84 H 98 05/19/19 07:33 05/19/19 07:33 05/19/19 07:33 05/19/19 07:33 05/19/19 07:33 - Notes Notes: PHYSICAL EXAMINATION: Physical Exam: General: Well-nourished well-developed man in no acute distress HEENT: NC/AT, pupils equal round and reactive to light, MM moist,nares congestion, oropharynx clear Neck: supple, no adenopathy, no masses. Lungs: clear, no wheezing, no rales no rhonchi CVS: Regular rate and rhythm no murmur gallop or rub Abdomen: Soft active nontender, no masses, no hepatosplenomegaly Ext: No edema clubbing or cyanosis. Neuro: Alert and responsive, moving all 4 extremities on command, cranial nerves intact. Skin: Intact no open lesions, no rash PSYCH: Normal mood, normal affect. Course - Re-evaluation Re-evalutation: 05/19/19 09:49 Patient with upper respiratory tract infection symptoms, nasal congestion, drainage, cough nonspecific chest pain. EKG was done as well as troponin. Both tests were negative. The patient states that he is ready to go home, we will discharge him with decongestant medication and follow-up with his primary doctor as needed. - Vital Signs Vital signs: Temp Pulse Resp BP Pulse Ox 98.2 F 75 16 139/84 H 98 05/19/19 07:33 05/19/19 07:33 05/19/19 07:33 05/19/19 07:33 05/19/19 07:33 - Laboratory Result Diagrams: 05/19/19 07:58 05/19/19 07:58 Laboratory results interpreted by me: 05/19/19 07:58 Creatine Kinase 321 H Total Protein 6.0 L 05/19/19 09:51 I have reviewed laboratory data and used this information for the treatment decisions regarding the patient. - Diagnostic Test Radiology reviewed: Image reviewed, Reports reviewed - Chest x-ray: No acute infiltrate or effusion - EKG Interpretation by Me EKG shows normal: Sinus rhythm - Normal sinus rhythm, rate 64, no acute ST or T wave abnormalities noted. Discharge - Discharge Clinical Impression: Non-cardiac chest pain Upper respiratory tract infection Qualifiers: URI type: unspecified URI Qualified Code(s): J06.9 - Acute upper respiratory infection, unspecified Condition: Good Disposition: HOME, SELF-CARE Instructions: Acetaminophen Additional Instructions: Use Claritin-D for congestion and ibuprofen for chest pain, push fluids and follow-up with your doctor as needed, you may return to the emergency department if your symptoms are worsening or if you have other concerns. Referrals: FLOR MEZA MD [Primary Care Provider] - Follow up as needed
[2019-05-19 10:41] VITALS: BP 131/91
--- NOTE | 2019-05-19 11:21 | EKG REPORT ---
SEVERITY:- NORMAL ECG - SINUS RHYTHM : Confirmed by: Chaka Scott MD 19-May-2019 11:20:07
== END 2019-05-19 10:10 | disposition home or self-care (01) ==
LOC: ER 07:16
DX: J06.9 Acute upper respiratory infection, unspecified (principal); R07.89 Other chest pain; R09.81 Nasal congestion; R50.9 Fever, unspecified; R09.89 Other specified symptoms and signs involving the circulatory and respiratory systems; R05 Cough; I10 Essential (primary) hypertension; Z79.899 Other long term (current) drug therapy
CPT/HCPCS: 36415; 71046; 80053; 82550; 82553; 84484; 85025; 93005; 93010; 99284

== ENCOUNTER 2019-06-08 16:08 | Emergency (ER) | payer MEDICAID ==
[2019-06-08 16:19] VITALS: BP 164/98
[2019-06-08] MEDS ORDERED: METHOCARBAMOL 750 MG TABLET PO ONE (16:34)
--- NOTE | 2019-06-08 16:35 | ER Document Report ---
ED Medical Screen (RME) - General Chief Complaint: Leg Pain Stated Complaint: LEG PAIN Time Seen by Provider: 06/08/19 16:30 Primary Care Provider: FLOR MEZA MD [Primary Care Provider] - Follow up as needed TRAVEL OUTSIDE OF THE [place] IN LAST 30 DAYS: No - HPI Notes: 06/08/19 16:34 Patient is a 43-year-old male with a history of schizophrenia and chronic pain who presents complaining of bilateral leg cramping after he had been walking for about 6 to 7 miles today. Patient states that he did feel some lightheadedness before calling EMS. Patient states that he feels dehydrated as he has not been drinking a lot of water. No drug allergies, fever, chest pain, shortness breath, vomiting/diarrhea. I have treated and performed a rapid initial assessment of this patient. A comprehensive ED assessment and evaluation of the patient, analysis of test results and completion of medical decision making process will be conducted by additional ED providers. PHYSICAL EXAMINATION: GENERAL: Well-appearing, well-nourished and in no acute distress. A&Ox4. Answers questions appropriately. - Related Data Allergies/Adverse Reactions: No Known Allergies Allergy (Verified 05/19/19 07:25) Past Medical History - Social History Frequency of alcohol use: Occasional Drug Abuse: None - Past Medical History Cardiac Medical History: Reports: Hx Hypercholesterolemia - not medicated, Hx Hypertension - not medicated Neurological Medical History: Reports: Hx Migraine Renal/ Medical History: Denies: Hx Peritoneal Dialysis Musculoskeltal Medical History: Reports Hx Arthritis, Reports Hx Musculoskeletal Deformity - chronic back pain and joint pain, Reports Hx Musculoskeletal Trauma - hairline fracture in left hip Psychiatric Medical History: Reports: Hx Bipolar Disorder, Hx Schizophrenia Traumatic Medical History: Reports: Hx Fractures - left hip Past Surgical History: Reports: Other - Corneal transplant - Immunizations Hx Diphtheria, Pertussis, Tetanus Vaccination: Yes - October 20, 2016 Physical Exam - Vital signs Vitals: Temp Pulse Resp BP Pulse Ox 98.4 F 103 H 16 164/98 H 95 06/08/19 16:18 06/08/19 16:18 06/08/19 16:18 06/08/19 16:18 06/08/19 16:18 Course - Vital Signs Vital signs: Temp Pulse Resp BP Pulse Ox 98.4 F 103 H 16 164/98 H 95 06/08/19 16:18 06/08/19 16:18 06/08/19 16:18 06/08/19 16:18 06/08/19 16:18 Doctor's Discharge - Discharge Referrals: FLOR MEZA MD [Primary Care Provider] - Follow up as needed
[2019-06-08 17:10] LABS: ABSOLUTE EOSINOPHILS # (AUTO) 0.1 10^3/uL (0.0-0.6); ABSOLUTE LYMPHOCYTES (AUTO) 1.7 10^3/uL (0.5-4.7); ABSOLUTE MONOCYTES (AUTO) 0.8 10^3/uL (0.1-1.4); BASOPHILS % (AUTO) 0.4 % (0-2); EOSINOPHILS % (AUTO) 0.9 % (0-6); HEMATOCRIT 42.3 % (37.9-51.0); HEMOGLOBIN 14.8 g/dL (13.5-17.0); LYMPHOCYTES % (AUTO) 22.5 % (13-45); MEAN CORPUSCULAR HEMOGLOBIN 31.1 pg (27.0-33.4); MEAN CORPUSCULAR VOLUME 89 fl (80-97); MONOCYTES % (AUTO) 10.1 % (3-13); PLATELET COUNT 328 10^3/uL (150-450); RED BLOOD COUNT 4.75 10^6/uL (4.35-5.55); RED CELL DISTRIBUTION WIDTH 13.5 % (11.5-14.0); SEGMENTED NEUTROPHILS % (AUTO) 66.1 % (42-78); TOTAL CELLS COUNTED % (AUTO) 100 %; WHITE BLOOD COUNT 7.6 10^3/uL (4.0-10.5)
[2019-06-08 17:26] LABS: ALBUMIN 4.3 g/dL (3.5-5.0); ALKALINE PHOSPHATASE 75 U/L (38-126); ANION GAP 10 (5-19); ASPARTATE AMINO TRANSFERASE 37 U/L (17-59); BILIRUBIN,DIRECT 0.2 mg/dL (0.0-0.4); BILIRUBIN,TOTAL 0.6 mg/dL (0.2-1.3); BLOOD UREA NITROGEN 17 mg/dL (7-20); CALCIUM 10.2 mg/dL (8.4-10.2); CARBON DIOXIDE 26 mmol/L (22-30); CHLORIDE 107 mmol/L (98-107); CREATINE KINASE 496 U/L (55-170); GLUCOSE 74 mg/dL (75-110); POTASSIUM 4.5 mmol/L (3.6-5.0); TOTAL PROTEIN 7.3 g/dL (6.3-8.2)
[2019-06-08 17:28] LABS: APPEARANCE,URINE CLEAR; BILIRUBIN,URINE NEGATIVE (NEGATIVE); COLOR,URINE YELLOW; GLUCOSE, URINE NEGATIVE (NEGATIVE); KETONES,URINE NEGATIVE (NEGATIVE); LEUKOCYTE ESTERASE,URINE NEGATIVE (NEGATIVE); NITRITE,URINE NEGATIVE (NEGATIVE); PROTEIN,URINE NEGATIVE (NEGATIVE); URINE SPECIFIC GRAVITY 1.026; UROBILINOGEN,URINE NEGATIVE mg/dL (<2.0)
== END 2019-06-08 19:01 | disposition left against medical advice (07) ==
LOC: ER 16:08
DX: Z53.21 Procedure and treatment not carried out due to patient leaving prior to being seen by health care provider (principal)
CPT/HCPCS: 36415; 80053; 81001; 82550; 83735; 85025; J3490

== ENCOUNTER 2019-09-25 09:35 | Emergency (ER) | payer MEDICAID ==
[2019-09-25 09:44] VITALS: BP 163/81
--- NOTE | 2019-09-25 11:18 | ER Document Report ---
ED General - General Chief Complaint: Chest Wall Pain Stated Complaint: MUSCLE PAIN Time Seen by Provider: 09/25/19 10:51 Primary Care Provider: FLOR MEZA MD [Primary Care Provider] - Follow up as needed Notes: Patient presents with left subpectoral pain worse with movement after an injury the other day. Pain on arm movement is present. No radiation no ripping or tearing pain no bruising no shortness of breath. Denies cardiac history. TRAVEL OUTSIDE OF THE [place] IN LAST 30 DAYS: No - Related Data Allergies/Adverse Reactions: No Known Allergies Allergy (Verified 05/19/19 07:25) Past Medical History - Social History Smoking Status: Current Every Day Smoker Family History: Arthritis, CVA, DM, Hyperlipidemia, Hypertension, Malignancy, Thyroid Disfunction Patient has homicidal ideation: No - Past Medical History Cardiac Medical History: Reports: Hx Hypercholesterolemia - not medicated Comment Only: Hx Hypertension - not medicated Neurological Medical History: Reports: Hx Migraine Renal/ Medical History: Denies: Hx Peritoneal Dialysis Musculoskeletal Medical History: Reports Hx Arthritis, Reports Hx Musculoskeletal Deformity - chronic back pain and joint pain, Reports Hx Musculoskeletal Trauma - hairline fracture in left hip Psychiatric Medical History: Reports: Hx Bipolar Disorder, Hx Schizophrenia Traumatic Medical History: Reports: Hx Fractures - left hip Past Surgical History: Reports: Other - Corneal transplant - Immunizations Hx Diphtheria, Pertussis, Tetanus Vaccination: Yes - October 20, 2016 Review of Systems - Review of Systems Notes: REVIEW OF SYSTEMS GEN: Denies fever, chills, weight loss ENT: Denies sore throat, nasal discharge, ear pain EYES: Denies blurry vision, eye pain, discharge CV: Chest pain RESP: Denies cough, shortness of breath, wheezing GI: Denies abdominal pain, nausea, vomiting, diarrhea MSK: Denies joint pain/swelling, edema, SKIN: Denies rash, skin lesions LYMPH: Denies swollen glands/lymph nodes NEURO: Denies headache, focal weakness or numbness, dizziness PSYCH: Denies depression, suicidal or homicidal ideation PHYSICAL EXAMINATION General: No acute distress, well-nourished Head: Atraumatic, normocephalic ENT: Mouth normal, oropharynx moist, no exudates or tonsillar enlargement Eyes: Conjunctiva normal, pupils equal, lids normal Neck: No JVD, supple, no guarding CVS: Normal rate, regular rhythm, no murmurs left pectoral tenderness without bruising or deformity Resp: No resp distress, equal and normal breath sounds bilaterally GI: Nondistended, soft, no tenderness to palpation, no rebound or guarding Ext: No deformities, no edema, normal range of motion in upper and lower ext Back: No CVA or midline TTP Skin: No rash, warm Lymphatic: No lymphadeopathy noted Neuro: Awake, alert. Face symmetric. GCS 15. Physical Exam - Vital signs Vitals: Temp Pulse Resp BP Pulse Ox 98.4 F 66 18 163/81 H 98 09/25/19 09:43 09/25/19 09:43 09/25/19 09:43 09/25/19 09:43 09/25/19 09:43 Course - Vital Signs Vital signs: Temp Pulse Resp BP Pulse Ox 98.4 F 66 18 163/81 H 98 09/25/19 09:50 09/25/19 09:43 09/25/19 09:43 09/25/19 09:43 09/25/19 09:43 09/25/19 18:23 Chest wall pain. EKG normal. Tender outpatient. No indications of ACS and clear story consistent with injury. Stable for discharge. I have discussed with the patient there likely diagnosis, aftercare plan, follow-up plans and my usual and customary return precautions. They verbalized understanding of this. - EKG Interpretation by Me EKG shows normal: Sinus rhythm Rate: Normal Rhythm: NSR When compared to previous EKG there are: Previous EKG unavailable - No ST or T wave changes concerning for ischemia Discharge - Discharge Clinical Impression: Chest wall pain Condition: Good Disposition: HOME, SELF-CARE Instructions: Anti-Inflammatory Medication ([facility]), Chest Wall Pain ([facility]) Referrals: FLOR MEZA MD [Primary Care Provider] - Follow up as needed
--- NOTE | 2019-09-25 22:34 | EKG REPORT ---
SEVERITY:- NORMAL ECG - SINUS RHYTHM : Confirmed by: Jack Herr 25-Sep-2019 22:32:55
== END 2019-09-25 11:20 | disposition home or self-care (01) ==
LOC: ER 09:35
DX: R07.89 Other chest pain (principal); F17.200 Nicotine dependence, unspecified, uncomplicated; E78.00 Pure hypercholesterolemia, unspecified
CPT/HCPCS: 93005; 93010; 99283

== ENCOUNTER 2019-10-11 01:43 | Emergency (ER) | payer MEDICAID ==
--- NOTE | 2019-10-11 03:32 | ER Document Report ---
ED General - General Chief Complaint: Nasal Congestion Stated Complaint: NASAL CONGESTION,HEADACHE,CHEST PAIN Time Seen by Provider: 10/11/19 02:45 Primary Care Provider: FLOR MEZA MD [Primary Care Provider] - Follow up as needed Mode of Arrival: Ambulatory Information source: Patient TRAVEL OUTSIDE OF THE [place] IN LAST 30 DAYS: No - HPI Onset: Other - patient has had off and on chest pains for months Onset/Duration: Gradual Quality of pain: Sharp Severity: Moderate Pain Level: 2 Associated symptoms: Chest pain, Nonproductive cough, Shortness of breath, Other - chest congestion Exacerbated by: Denies Relieved by: Denies Similar symptoms previously: No Recently seen / treated by doctor: Yes - seen here on 09/25/19 for left sided chest pain after musculoskeletal trauma Notes: 44 year old male with a history of HLD and Migraines here in the ER for months of off and on chest pains and several days of right sided chest congestion with a cough. The patient denies fevers, chills, sweats, nausea, vomiting, radiation of chest pain. The patient was seen in this ER on 09/25/19 for left sided chest pain after some minor chest trauma (his work up at that time was unremarkable). The patient is also having some pain in his left upper back molar. The patient has a dentist but he has not scheduled an appointment for his dental pain. - Related Data Allergies/Adverse Reactions: No Known Allergies Allergy (Verified 05/19/19 07:25) Past Medical History - General Information source: Patient - Social History Smoking Status: Current Every Day Smoker Frequency of alcohol use: Occasional Drug Abuse: None Family History: Arthritis, CVA, DM, Hyperlipidemia, Hypertension, Malignancy, Thyroid Disfunction - Past Medical History Cardiac Medical History: Reports: Hx Hypercholesterolemia - not medicated Comment Only: Hx Hypertension - not medicated Neurological Medical History: Reports: Hx Migraine Renal/ Medical History: Denies: Hx Peritoneal Dialysis Musculoskeletal Medical History: Reports Hx Arthritis, Reports Hx Musculoskeletal Deformity - chronic back pain and joint pain, Reports Hx Musculoskeletal Trauma - hairline fracture in left hip Psychiatric Medical History: Reports: Hx Bipolar Disorder, Hx Schizophrenia Traumatic Medical History: Reports: Hx Fractures - left hip Past Surgical History: Reports: Other - Corneal transplant - Immunizations Hx Diphtheria, Pertussis, Tetanus Vaccination: Yes - October 20, 2016 Review of Systems - Review of Systems Constitutional: No symptoms reported EENT: Other - Dental Pain (back left upper molar) Cardiovascular: Chest pain Respiratory: No symptoms reported Gastrointestinal: No symptoms reported Genitourinary: No symptoms reported Male Genitourinary: No symptoms reported Musculoskeletal: No symptoms reported Skin: No symptoms reported Hematologic/Lymphatic: No symptoms reported Neurological/Psychological: No symptoms reported -: Yes All other systems reviewed and negative Physical Exam - Vital signs Vitals: Temp Pulse Resp BP Pulse Ox 98.5 F 94 16 135/97 H 97 10/11/19 02:02 10/11/19 02:02 10/11/19 02:02 10/11/19 02:02 10/11/19 02:02 - Notes Notes: GENERAL: Well-appearing, well-nourished and in no acute distress. HEAD: Atraumatic, normocephalic. EYES: Pupils equal round and reactive to light, extraocular movements intact, sclera anicteric, conjunctiva are normal. ENT: External ears normal, nares patent, oropharynx clear without exudates. Moist mucous membranes. NECK: Normal range of motion, supple without lymphadenopathy or JVD. LUNGS: Breath sounds clear to auscultation bilaterally and equal. No wheezes rales or rhonchi. HEART: Regular rate and rhythm without murmurs, rubs or gallops. ABDOMEN: Soft, nontender, normoactive bowel sounds. No guarding, no rebound. No masses appreciated. EXTREMITIES: Normal range of motion, no pitting or edema. No clubbing or cyanosis. NEUROLOGICAL: Cranial nerves II through XII grossly intact. Normal speech, normal gait. PSYCH: Normal mood, normal affect. SKIN: Warm, Dry, normal turgor, no rashes or lesions noted. Course - Re-evaluation Re-evalutation: 10/11/19 04:32 The patient is here for off and on right sided chest pain along with left upper back molar pain. The patient has a completely negative Troponin, unremarkable EKG, and unremarkable Chest Xray. The patient's history is not concerning for ACS. Patient is PERC negative making PE unlikely. Patient could have a viral syndrome causing his chest pain, chest congestion, and cough. Patient told to follow up with his PCP for his Chest Pain and Chest Congestion and he was told to follow up with a Dentist for his dental pain. - Vital Signs Vital signs: Temp Pulse Resp BP Pulse Ox 98.5 F 94 16 135/97 H 97 10/11/19 02:02 10/11/19 02:02 10/11/19 02:02 10/11/19 02:02 10/11/19 02:02 - Laboratory Result Diagrams: 10/11/19 03:35 10/11/19 03:35 Laboratory results interpreted by me: 10/11/19 03:35 Sodium 136.9 L - Diagnostic Test Radiology reviewed: Image reviewed, Reports reviewed - EKG Interpretation by Me EKG shows normal: Sinus rhythm, [place], Intervals, QRS Complexes, ST-T Waves Rate: Normal Rhythm: NSR When compared to previous EKG there are: No significant change Discharge - Discharge Clinical Impression: Pain, dental Chest pain Qualifiers: Chest pain type: other chest pain Qualified Code(s): R07.89 - Other chest pain Condition: Stable Disposition: HOME, SELF-CARE Instructions: Chest Pain of Unclear Cause ([facility]), Toothache ([facility]) Additional Instructions: Follow up with your primary care doctor and tell him/her about your ER visit for chest pain. You had blood work, an EKG, and a chest xray which were unremarkable today in the ER. Take Amoxicillin (an antibiotic) as prescribed along with over the counter Tylenol and Motrin for your dental pain. Follow up with a Dentist for further management of your dental pain. Prescriptions: Amoxicillin 875 mg PO BID 7 Days #14 tablet Referrals: FLOR MEZA MD [Primary Care Provider] - Follow up as needed
--- NOTE | 2019-10-11 03:37 | RADIOLOGY REPORT (SQ) ---
EXAM: XR Chest, 2 Views EXAM DATE/TIME: 10/11/2019 3:19 AM CLINICAL HISTORY: The patient is 44 years old and is Male; eval for pneumonia TECHNIQUE: Frontal and lateral views of the chest. COMPARISON: Chest radiograph from 05/19/2019 FINDINGS: LUNGS: Linear density in the lateral aspect of the right lower lung is similar to the prior exam and is compatible with scarring. The lungs are otherwise clear. No consolidation. PLEURAL SPACE: Unremarkable. No pneumothorax. HEART: Mild enlargement of the cardiac silhouette. MEDIASTINUM: Unremarkable. BONES/JOINTS: No acute osseous findings. IMPRESSION: No acute findings visualized in the chest.
[2019-10-11 03:55] LABS: ABSOLUTE BASOPHILS # (AUTO) 0.1 10^3/uL (0.0-0.2); ABSOLUTE EOSINOPHILS # (AUTO) 0.2 10^3/uL (0.0-0.6); ABSOLUTE LYMPHOCYTES (AUTO) 2.1 10^3/uL (0.5-4.7); ABSOLUTE MONOCYTES (AUTO) 0.8 10^3/uL (0.1-1.4); ABSOLUTE NEUT (AUTO) 4.3 10^3/uL (1.7-8.2); BASOPHILS % (AUTO) 0.7 % (0-2); EOSINOPHILS % (AUTO) 2.1 % (0-6); HEMATOCRIT 41.1 % (37.9-51.0); HEMOGLOBIN 14.3 g/dL (13.5-17.0); LYMPHOCYTES % (AUTO) 28.5 % (13-45); MEAN CORPUSCULAR HEMOGLOBIN 30.9 pg (27.0-33.4); MEAN CORPUSCULAR HGB CONC 34.9 g/dL (32.0-36.0); MEAN CORPUSCULAR VOLUME 89 fl (80-97); MONOCYTES % (AUTO) 10.6 % (3-13); PLATELET COUNT 302 10^3/uL (150-450); RED BLOOD COUNT 4.63 10^6/uL (4.35-5.55); RED CELL DISTRIBUTION WIDTH 13.8 % (11.5-14.0); SEGMENTED NEUTROPHILS % (AUTO) 58.1 % (42-78); TOTAL CELLS COUNTED % (AUTO) 100 %; WHITE BLOOD COUNT 7.5 10^3/uL (4.0-10.5)
[2019-10-11 04:02] LABS: ALKALINE PHOSPHATASE 66 U/L (38-126); ANION GAP 5 (5-19); ASPARTATE AMINO TRANSFERASE 31 U/L (17-59); BILIRUBIN,TOTAL 0.4 mg/dL (0.2-1.3); BLOOD UREA NITROGEN 19 mg/dL (7-20); CALCIUM 9.6 mg/dL (8.4-10.2); CARBON DIOXIDE 25 mmol/L (22-30); CHLORIDE 107 mmol/L (98-107); GLUCOSE 103 mg/dL (75-110); POTASSIUM 4.4 mmol/L (3.6-5.0); TOTAL PROTEIN 6.4 g/dL (6.3-8.2)
[2019-10-11] MEDS ORDERED: AMOXICILLIN TRIHYDRATE 500 MG CAPSULE PO ONE (04:37)
[2019-10-11 05:09] VITALS: BP 135/97
--- NOTE | 2019-10-11 09:42 | EKG REPORT ---
SEVERITY:- NORMAL ECG - SINUS RHYTHM : Confirmed by: Chaka Scott MD 11-Oct-2019 09:41:48
== END 2019-10-11 05:13 | disposition home or self-care (01) ==
LOC: ER 01:43
DX: R07.89 Other chest pain (principal); K08.89 Other specified disorders of teeth and supporting structures; R51 Headache; R09.81 Nasal congestion; R06.02 Shortness of breath; R09.89 Other specified symptoms and signs involving the circulatory and respiratory systems; E78.5 Hyperlipidemia, unspecified; F17.200 Nicotine dependence, unspecified, uncomplicated; I10 Essential (primary) hypertension
CPT/HCPCS: 36415; 71046; 80053; 84484; 85025; 93005; 93010; 99285

== ENCOUNTER 2020-05-07 07:14 | Emergency (ER) | payer MEDICAID ==
[2020-05-07 07:21] VITALS: BP 159/82
--- NOTE | 2020-05-07 10:08 | ER Document Report ---
Doctor's Note Notes: 05/07/20 10:08 I went to patient's room just now. Patient is not in the room. I searched the restroom as well and he was not in there. Nurse states she did not see the patient leave. At this time it appears the patient has left without informing anyone.
== END 2020-05-07 10:15 | disposition left against medical advice (07) ==
LOC: ER 07:14
DX: Z53.21 Procedure and treatment not carried out due to patient leaving prior to being seen by health care provider (principal)